=== PATIENT | male | born 1945 | race Caucasian/White ===

== ENCOUNTER → 2016-10-15 10:01 | Outpatient (CLI) | payer MEDICARE ==
[2010-02-11 08:22] VITALS: BMI 33.6
[~2016-10-15 10:01] MED LIST: BAYER CHEWABLE81 MG PO; COUMADIN5 MG PO; LISINOPRIL-HCTZ1 T13 PO; METOPROLOL TART50 MG PO; PLAVIX75 MG PO
[2016-10-27 10:00] VITALS: BMI 30.6
== END | disposition home or self-care (01) ==
LOC: D.CT 10:01
DX: I70.213 Atherosclerosis of native arteries of extremities with intermittent claudication, bilateral legs (principal)

== ENCOUNTER 2016-10-27 08:41 | Outpatient (CLI) | payer MEDICARE ==
[~2016-10-27] VITALS: Ht 190.5 cm; Wt 111.4 kg
--- NOTE | ~2016-10-27 | HEMODYNAMI ---
PATIENT:REGINO ANDERSON MEDICAL RECORD: [id number] : 43 LOCATION:D.CAT ADMISSION DATE: 10/27/16 Generatedon:10/27/201612:14 Patient name: REGINO ANDERSON Patient #: [id number] SSN: D OB: 1945 Date of study: 10/27/2016 Page: Of Hemodynamic Procedure Report Patient Data Patient Demographics Procedure consent was obtained First Name: REGINO Gender: Male Last Name: JUSTIN : 1945 Middle Initial: MARTINEZ Age: 70 year(s) Patient #: [id number] Race: Unknown Additional ID: [id number] Contact details Address: [facility] [address] State: [place] City: [facility] Zip code: [address] Past Medical History Allergies: No known allergies Admission Admission Data Admission Date: 10/27/2016 Admission Time: 8:41 Height (in.): 75 BSA: 2.39 (m2) Height (cm.): 190.5 BMI: 30.69 (kg/m2) Weight (lbs.): 245.51 Weight (kg.): 111.36 Lab Results Lab Result Date: 10/27/2016 Lab Result Time: 0:00 Biochemistry Name Units Result Min Max Creatinine mg/dl 0.8 --(-*--)-- 0.6 1.3 CBC Name Units Result Min Max Hemoglobin g/dl 17.7 --(----)*- 13.5 17.5 Procedure Procedure Types Cath Procedure Miscellaneous Procedures Moderate Sedation up to 30 minutes Peripheral Cath Diagnostic Procedure Cath Peripheral Qhsqq-Islelms-Jxq-Off Peripheral vascular Intervention Stent Stent-Tib/Per w/plasty Initial Procedure Description Procedure Date Procedure Date: 10/27/2016 Procedure Start Time: 11:47 Procedure End Time: 12:14 Procedure Staff Name Function Alex Christiansen MD Performing Physician Miquel Bowden RT Scrub Teto Tanner RN Nurse Hoa Negrete RT Monitor Procedure Data Cath Procedure Fluoroscopy Diagnostic fluoroscopy Total fluoroscopy Time: 7.4 time: 7.4 min min Diagnostic fluoroscopy Total fluoroscopy dose: 234 dose: 234 mGy mGy Contrast Material Contrast Material Type Amount (ml) Isovue 300 223 Entry Location Entry Primary Successful Side Size Upsize Upsize Entry Closure Succes sful Closure Location (Fr) 1 (Fr) 2 (Fr) Remarks Device Remarks Femoral Right 5 Fr 6 Fr 6 Fr artery Long Short Estimated blood loss: 10 ml Diagnostic catheters Device Type Used For End Catheter Placement Cordis Tempo 5Fr UF Abdominal catheter aortogram with runoff Procedure Complications No complications Procedure Medications Medication Administration Route Dosage Oxygen NC 2 l/min Heparin Flush Bag added to field 2 bags (1000units/500ml NS) 0.9% NaCl I.V. 100 ml/hr Fentanyl I.V. 50 mcg Versed I.V. 1 mg Fentanyl I.V. 50 mcg Versed I.V. 1 mg Fentanyl I.V. 50 mcg Fentanyl I.V. 50 mcg Heparin Bolus I.V. 4000 units Versed I.V. 1 mg Versed I.V. 1 mg Plavix P.O. 600 mg Hemodynamics Rest BSA: 2.39 (m2) HGB: 17.7 (g/dl) O2 Consumption: Estimated: 285.93 (ml/min) O2 Co nsumption indexed: Estimated:119.64 (ml/min/m) Heart Rate: 81 (bpm) Snapshots Pre Cath Intra NCS Post Cath Vital Signs Time Heart Resp SPO2 etCO2 DT1zhbt NIBP (mmHg) Rhythm Pain Sedatio n Rate (ipm) (%) (mmHg) (mmHg) Status Level (bpm) 11:31:00 82 20 98 0 0 134/102(114) A-Fib 0 (11) 10(A) , No pain 11:35:06 72 17 100 0 0 136/90(111) A-Fib 0 (11) 10(A) , No pain 11:39:16 83 18 95 0 0 123/78(97) A-Fib 0 (11) 10(A) , No pain 11:43:20 77 17 97 0 0 118/86(106) A-Fib 0 (11) 10(A) , No pain 11:47:24 97 18 98 0 0 135/81(96) A-Fib 0 (11) 10(A) , No pain 11:51:34 99 17 98 0 0 117/74(95) A-Fib 0 (11) 9(A) , No pain 11:55:35 96 16 97 0 0 119/83(97) A-Fib 0 (11) 9(A) , No pain 11:59:35 95 17 97 0 0 120/90(95) A-Fib 0 (11) 9(A) , No pain 12:03:37 96 16 99 0 0 127/84(122) A-Fib 0 (11) 9(A) , No pain 12:07:42 88 17 96 0 0 109/81(91) A-Fib 0 (11) 9(A) , No pain 12:11:42 85 19 94 0 0 123/80(106) A-Fib 0 (11) 9(A) , No pain Medications Time Medication Route Dose Verified Delivered Reason Notes Effectiveness by by 11:32:04 Oxygen NC 2 Teto Teto Per physician l/min Ciro Tanner RN RN 11:32:12 Heparin Flush added 2 Teto Teto used for Bag to bags Ciro Tanner RN procedure (1000units/500ml field RN NS) 11:32:23 0.9% NaCl I.V. 100 Teto Teto Per physician ml/hr Ciro Tanner RN RN 11:42:38 Fentanyl I.V. 50 Teto Teto for sedation mcg Ciro Tanner RN RN 11:42:45 Versed I.V. 1 mg Teto Teto for sedation Ciro Tanner RN RN 11:47:28 Fentanyl I.V. 50 Teto Teto for sedation mcg Ciro Tanner RN RN 11:47:33 Versed I.V. 1 mg Teto Teto for sedation Ciro Tanner RN RN 11:50:03 Fentanyl I.V. 50 Teto Teto for sedation mcg Ciro Tanner RN RN 11:55:48 Fentanyl I.V. 50 Teto Teto for sedation mcg Ciro Tanner RN RN 11:55:57 Heparin Bolus I.V. 4000 Teto Teto for units Ciro Tanner RN anticoagulation RN 12:03:09 Versed I.V. 1 mg Teto Teto for sedation Ciro Tanner RN RN 12:05:22 Versed I.V. 1 mg Etto Teto for sedation Ciro Tanner RN RN 12:13:27 Plavix P.O. 600 Teto Irene for mg Ciro Tanner RN antiplatelet RN therapy Procedure Log Time Note 11:05:41 Teto Tanner RN sent for patient. Start room use. 11:15:42 Time tracking: Regular hours 11:15:46 Plan of Care:Hemodynamics will remain stable., Cardiac rhythm will remain stable., Comfort level will be maintained., Respiratory function will remain adequate., Patient/ family verbilizes understanding of procedure., Procedure tolerated without complication., Recovers from procedure without complications.. 11:17:58 Lab Result : Hemoglobin 17.7 g/dl 11:17:58 Lab Result : Creatinine 0.8 mg/dl 11:18:12 Patient Height : 75 cm 11:18:28 Patient Weight : 245.51 kg 11:22:56 Patient received from Pre/Post Procedure Room to CCL 1 Alert and oriented. Tansferred to table in Supine position. 11:23:00 Warm blankets applied, and theresa hugger turned on for patient comfort. 11:23:00 Correct patient and procedure confirmed by team. 11:23:02 Signed procedure consent form obtained from patient. 11:23:03 ECG and BP/O2 sat monitors applied to patient. 11:23:03 Full Disclosure recording started 11:30:02 Vital chart was started 11:32:04 Oxygen 2 l/min NC was administered by Teto Tanner RN; Per physician; 11:32:12 Heparin Flush Bag (1000units/500ml NS) 2 bags added to field was administered by Teto Tanner RN; used for procedure; 11:32:14 Rhythm: sinus rhythm 11:32:20 Baseline sample Acquired. 11:32:23 0.9% NaCl 100 ml/hr I.V. was administered by Teto Tanner RN; Per physician; 11:32:38 H&P Date Dictated: 10/08/2016 Within 30 days and on chart., H&P Addendum completed by physician on day of procedure. (MUST COMPLETE FOR ALL OUTPATIENTS). 11:32:40 Pre-procedure instructions explained to patient. 11:32:41 Pre-op teaching completed and patient verbalized understanding. 11:32:42 Family in waiting room. 11:32:45 Patient NPO since Midnight. 11:32:53 Patient allergic to No known allergies 11:32:55 Is the patient allergic to Iodine/contrast media? No. 11:32:58 Is patient on blood thinner?Yes 11:33:07 ACC The patient was administered the following blood thiners within the last 24 hours: None 11:33:10 Patient diabetic? No. 11:33:14 Previous problem with sedation/anesthesia? No ? 11:33:15 Snore? Yes 11:33:16 Sleep apnea? Yes 11:33:17 Deviated septum? No 11:33:18 Opens mouth fully? Yes 11:33:19 Sticks out tongue? Yes 11:33:20 Airway obstruction? No ? 11:33:22 Dentures? No ? 11:33:28 Pre procedure: right dorsailis pedis pulse Doppler 11:33:32 Pre procedure: left dorsailis pedis pulse Doppler 11:33:35 Patient pain scale 0/10 ?. 11:37:41 IV patent on arrival in left hand with 0.9% NaCl at [facility]. 11:37:47 Lab results completed and on chart. 11:37:51 Bilateral groins area was prepped with chlora-prep and draped in sterile fashion 11:37:52 Alarms reviewed by R. N. 11:37:52 Sharps counted by scrub and verified by R.N. 11:38:02 Acist Syringe opened to sterile field. 11:38:02 Bag Decanter opened to sterile field. 11:38:03 Medline Cath Pack opened to sterile field. 11:38:03 Terumo 5Fr Reno Sheath opened to sterile field. 11:38:04 St Mario 260cm J .035 wire opened to sterile field. 11:38:05 Acist Hand Control opened to sterile field. 11:38:06 Acist Manifold opened to sterile field. 11:38:07 Tegaderm 4 x 4 opened to sterile field. 11:40:51 Final Timeout: patient, procedure, and site verified with staff and physician. All members of the team are in agreement. 11:41:21 Right groin site verified by team. 11:41:25 Physical assessment completed. ASA score P 2 - A patient with mild systemic disease as per Alex Christiansen MD. 11:41:30 Sedation plan: IV Moderate Sedation Versed, Fentanyl 11:42:23 Zero performed for pressure channel P1 11:42:27 Zero performed for pressure channel P1 11:42:31 Zero performed for pressure channel P1 11:42:38 Fentanyl 50 mcg I.V. was administered by Teto Tanner RN; for sedation; 11:42:45 Versed 1 mg I.V. was administered by Teto Tanner RN; for sedation; 11:47:04 Procedure started. 11:47:10 Local anesthetic to right femoral artery with Lidocaine 2% by Alex Christiansen MD.INITIAL ACCESS ONLY 11:47:27 A 5 Fr sheath was inserted into the Right Femoral artery 11:47:28 Fentanyl 50 mcg I.V. was administered by Teto Tanner RN; for sedation; 11:47:33 Versed 1 mg I.V. was administered by Teto Tanner RN; for sedation; 11:47:38 A Credit Sesame 5Fr UF catheter was advanced over the wire and used for Abdominal aortogram with runoff. 11:49:29 Terumo ANGLED SS 260CM glide wire opened to sterile field. 11:49:38 Terumo TORQUE DEVICE PLASTIC .038 opened to sterile field. 11:50:03 Fentanyl 50 mcg I.V. was administered by Teto Tanner RN; for sedation; 11:50:17 SS Bingham wire advanced. 11:50:29 UF Cath advanced to Lt Iliac 11:51:40 Catheter removed. 11:53:02 Sheath upsized to a 6 Fr Long. 11:54:44 [place]kridge Sci Choice PT Extra Support J 300cm .014 gu opened to sterile field. 11:55:48 Fentanyl 50 mcg I.V. was administered by Teto Tanner RN; for sedation; 11:55:57 Heparin Bolus 4000 units I.V. was administered by Teto Tanner RN; for anticoagulation; 11:58:01 Wire removed. 11:58:09 Choice PT ES wire advanced. 12:01:44 Inflation number: 1 A [place]ridge Sci Parmer 3.0 X 20 balloon was prepped and advanced across the Proximal Posterior Tibial, Left, then inflated to 13 RUSTY for 0:28 (min:sec). 12:02:01 Inflation number: 2 The [place] Sci Parmer 3.0 X 20 balloon was reinflated across the Proximal Posterior Tibial, Left, to 10 RUSTY for 0:09 (min:sec). 12:02:49 Inflation number: 3 The [place] Sci Parmer 3.0 X 20 balloon was reinflated across the Proximal Posterior Tibial, Left, to 7 RUSTY for 0:07 (min:sec). 12:03:09 Versed 1 mg I.V. was administered by Teto Tanner RN; for sedation; 12:03:13 Inflation number: 4 The [place] Sci Parmer 3.0 X 20 balloon was reinflated across the Proximal Posterior Tibial, Left, to 13 RUSTY for 0:23 (min:sec). 12:03:29 Inflation number: 5 The [place] Sci Parmer 3.0 X 20 balloon was reinflated across the Proximal Posterior Tibial, Left, to 13 RUSTY for 0:10 (min:sec). 12:04:20 Balloon removed over the wire. 12:05:22 Versed 1 mg I.V. was administered by Teto Tanner RN; for sedation; 12:06:25 Inflation Number: 6 A Medtronic Integrity 3.0 X 30 stent was prepped and advanced across the Proximal Posterior Tibial, Left. The stent was deployed at 13 RUSTY for 0:11 (min:sec). 12:06:44 Stent catheter was removed intact over wire. 12:06:46 Wire removed. 12:07:01 Cordis 6Fr Exoseal opened to sterile field. 12:07:07 Sheath upsized to a 6 Fr Short. 12:07:10 Procedure ended.(Physican Out) 12:07:23 Fluoroscopy time 07.40 minutes. 12:07:27 Fluoroscopy dose: 234 mGy 12:07:27 Flurop Dose total: 234 12:08:53 Contrast amount:Isovue 300 223ml. 12:08:54 Sharps counted by scrub and verified by R.N. 12:08:55 Insertion/operative site no bleeding no hematoma. 12:08:58 Post-op/insertion site Right Femoral artery dressed using a 4 x 4 and Tegaderm. 12:09:02 Post right femoral artery:stable, clean and dry 12:09:08 Post Procedure Pulses reassessed and unchanged 12:09:11 Post-procedure physical assessment completed. ASA score P 2 - A patient with mild systemic disease as per Alex Christiansen MD. 12:09:14 Post procedure rhythm: unchanged. 12:09:16 Estimated blood loss: 10 ml 12:09:18 Post procedure instruction explained to patient.Patient verbalizes understanding. 12:09:19 Patient needs reinforcement of post procedure teaching. 12:09:44 Procedure type changed to Cath procedure, Miscellaneous Procedures, Moderate Sedation up to 30 minutes, Peripheral Cath Diagnostic Procedure, Cath Peripheral, Cohhv-Ooaauyn-Sbr-Off, Peripheral vascular Intervention, Stent, Stent-Tib/Per w/plasty Initial 12:10:05 Procedure Complication : No complications 12:10:08 See physician's report for complete and final results. 12:10:51 Merit BasixCompak Inflation Kit opened to sterile field. 12:11:16 Terumo 6Fr Reno Sheath opened to sterile field. 12:11:17 Terumo 6Fr Reno Destination Sheath opened to sterile field. 12:12:22 Procedure and supply charges have been captured, reviewed, submitted and are correct. 12:13:27 Plavix 600 mg P.O. was administered by Teto Tanner RN; for antiplatelet therapy; 12:14:09 Vital chart was stopped 12:14:11 Report given to Pre/Post Procedure Room. 12:14:14 Patient transfered to Pre/Post Procedure Room with Bed. 12:14:24 Procedure ended. 12:14:24 Full Disclosure recording stopped 12:14:27 End room use (Document Last) Intervention Summary Intervention Notes Time ActionType Lesion and Equipment Action# Pressure Duration Attributes Used 12:01:44 Inflate Proximal [place] 1 13 00:28 balloon Posterior Sci Tibial, Parmer Left 3.0 X 20 balloon 12:02:01 Reinflate Proximal [place] 2 10 00:09 balloon Posterior Sci Tibial, Parmer Left 3.0 X 20 balloon 12:02:49 Reinflate Proximal [place] 3 7 00:07 balloon Posterior Sci Tibial, Parmer Left 3.0 X 20 balloon 12:03:13 Reinflate Proximal [place] 4 13 00:23 balloon Posterior Sci Tibial, Parmer Left 3.0 X 20 balloon 12:03:29 Reinflate Proximal [place] 5 13 00:10 balloon Posterior Sci Tibial, Parmer Left 3.0 X 20 balloon 12:06:25 [address] stent Proximal Medtronic 6 13 00:11 Posterior Integrity Tibial, 3.0 X 30 Left stent Device Usage Item Name Manufacture Quantity Catalog Number Hospital Part Current Mini mal Lot# / Charge Number Stock Stock Serial# Code [facility] 1 [id number] [id number] [id number] 20 Syringe Medical Systems Inc Bag Microtek 1 2002S 524155 41010 492853 5 Decanter Medical Inc. Medline Cardinal 1 [id number] 127142 58300 662668 5 Cath Pack Health Terumo 5Fr Terumo 1 [id number] 151608 234944 928049 [address] St Mario 1 160308 479161 542896 113168 30 260cm J .035 wire Acist Hand Acist 1 93455 025999 040319 360933 5 Control Medical Systems Inc Acist Acist 1 12104 421766 843659 148567 5 Manifold Medical Systems Inc Tegaderm 4 3M 1 1626W 148854 714228 389688 5 x 4 Cordis Cardinal 1 [id number] 208577 525053 752589 10 Tempo 5Fr Health UF catheter Terumo Terumo 1 [id number] 249480 259490 967432 [address] SS 260CM glide wire Terumo [place] 1 TD01 374197 064372 124685 5 TORQUE Scientific DEVICE PLASTIC .038 Elkridge Sci Elkridge 1 [id number] 625917 248245 696084 5 Choice PT Scientific Extra Support J 300cm .014 gu Elkridge Sci Elkridge 1 [id number] 514327 473974 002699 1 [id number] Parmer Scientific 3.0 X 20 balloon Medtronic Medtronic 1 [id number] 905176 820943 132034 4 [id number] Integrity 3.0 X 30 stent Cordis 6Fr Cardinal 1 EX600 805189 007451 085691 10 [facility] Merit 1 [id number] 527042 427791 849155 15 BasixCompak Medical Inflation Kit Terumo 6Fr Terumo 1 EHE420 540453 580269 465037 40 Reno Sheath Terumo 6Fr Terumo 1 RSR01 892503 79802 462116 5 Reno Destination Sheath Signature Audit Exchange Stage Time Signature Unsigned Intra-Procedure 10/27/2016 Hoa 12:14:41 PM Counts RT(R) Signatures Monitor : Hoa Signature : Counts RT Date : Time : [address] [place] [address]
--- NOTE | ~2016-10-27 | OP ---
PATIENT NAME: REGINO ANDERSON MEDICAL RECORD: [id number] :43 LOCATION:D.CAT ADMISSION DATE: SURGEON: SARA MILLER MD DATE OF OPERATION: 10/27/2016 PROCEDURES: 1. Stent placement, posterior tibial, left. 2. [employer], posterior tibial, left. 3. Aortofemoral runoff. 4. Abdominal aortography. INDICATIONS: Claudication and peripheral vascular disease. PROCEDURE IN DETAIL: After informed consent was obtained and after detailed explanation of risks, benefits as well as alternative therapies, the patient elected to proceed with angiogram and angioplasty. The right femoral area was prepped and draped in normal sterile fashion. The right femoral artery was cannulated via modified Seldinger technique with placement of 6-Estonian zbzbtm-muj-tdmb sheath. All catheters exchanged through this sheath. FINDINGS: The abdominal aortography was performed. The catheter was pulled down for aortofemoral runoff. Abdominal aortography reveals significant renal artery stenosis on the right greater than 80%, no renal artery stenosis on the left. No evidence of aneurysmal dilatation or dissection. No abdominal aortic stenosis. RIGHT LEG: A. Iliac: The common internal and external iliacs have mild irregularities, but no flow-limiting stenosis. B. Femoral system: The common superficial and deep femoral have moderate irregularities, but no flow-limiting stenosis. C. Popliteal and infrapopliteal vessels: The popliteal is widely patent. The anterior tibial is totally occluded. There is 2-vessel runoff through the posterior tibial and peroneal, although diffusely diseased there is 2-vessel runoff. LEFT LEG: A. Iliac: The common internal and external iliacs have moderate irregularities, but no flow-limiting stenosis. B. Femoral system: The common superficial and deep femoral have moderate irregularities, but no flow-limiting stenosis. C. Popliteal and infrapopliteal vessels: The popliteal is widely patent. The anterior tibial appears to be totally occluded in the proximal vessel. There is 2-vessel runoff through the peroneal and posterior tibial. The posterior tibial is by far the larger vessel. There is 80%-90% stenosis in the proximal posterior tibial. [employer] OF THE POSTERIOR TIBIAL: With a 3.0 balloon, this yielded a suboptimal result with severe intimal dissection. Stenting was undertaken with a 3.0 x 30 Integrity stent. Result was 0% residual with adventism of brisk distal flow. IMPRESSION: Successful percutaneous transluminal angioplasty stent of the left posterior tibial going from 90% initial stenosis to 0% residual with adventism of brisk distal flow. OPERATIVE REPORT [id number] REGINO ANDERSON TRANSINT:[id number] Voice Confirmation ID: [id number] DOCUMENT ID: [id number] SARA MILLER MD CC: [id number] DICTATION DATE: 10/27/16 1213 COFFEE TASTER: 10/27/16 1234 [facility] [address] [id number]
[2016-10-27] MEDS ORDERED: BAYER CHEWABLE81 MG PO (09:57)
[2016-10-27] MEDS ORDERED: LISINOPRIL-HCTZ1 T13 PO (09:57)
[2016-10-27] MEDS ORDERED: COUMADIN5 MG PO (09:57)
[2016-10-27] MEDS ORDERED: METOPROLOL TART50 MG PO (09:58)
[2016-10-27 10:00] VITALS: BP 137/80; Ht 190.5 cm; Wt 111.4 kg
[2016-10-27 10:31] LABS: HEMATOCRIT 50.2 % (42.0-54.0); HEMOGLOBIN 17.7 g/dL (13.5-17.5); LYMPHOCYTES 21.5 % (15-50); MCH 34.1 pg (26.0-34.0); MCHC 35.3 g/dL (31.0-37.0); MCV 96.7 fL (80.0-100.0); MEAN PLATELET VOLUME 10.1 fL (7.4-10.4); NEUTROPHILS 66.3 % (40-80); PLATELET COUNT 139 10x3/uL (130-400); RBC 5.19 10x6/uL (4.20-6.10); RDW 12.9 % (11.5-14.5); WBC 8.2 10x3/uL (4.8-10.8)
[2016-10-27 10:36] LABS: INR 1.09 (0.85-1.17); PROTIME 13.9 SECONDS (11.6-15.0)
[2016-10-27 10:45] LABS: CALC OSMOLALITY 282 mosm/kg (275-300); CALCIUM 9.4 mg/dL (8.5-10.1); CARBON DIOXIDE 27.8 mmol/L (21.0-32.0); CHLORIDE - SERUM 104 mmol/L (98-107); CREATININE - SERUM 0.8 mg/dL (0.6-1.3); GLUCOSE 117 mg/dL (74-106); POTASSIUM - SERUM 4.7 mmol/L (3.5-5.1); SODIUM 141 mmol/L (136-145); UREA NITROGEN 14 mg/dL (7-18); eGFR NON AFRICAN AMERICAN > 90 mL/min (90-120)
--- NOTE | 2016-10-27 12:32 | NUR ---
1230 RECEIVED PT FROM FUNCTIONAL DIRECTOR. RR EVEN AND UNLABORED, VSS. DRESSING TO RIGHT GROIN IS CDI, NO BLEEDING OR HEMATOMA NOTED. PEDAL PULSES PALPABLE. PT DENIES ANY C/O OR NEEDS AT THIS TIME. AT BEDSIDE. CALL LIGHT IN REACH.
[2016-10-27] MEDS ORDERED: PLAVIX75 MG PO (12:53)
--- NOTE | 2016-10-27 13:01 | NUR ---
1245 RIGHT GROIN DRESSING IS CDI, NO BLEEDING OR HEMATOMA NOTED. PEDAL PULSES PALPABLE. PT DENIES ANY C/O AT THIS TIME. VSS. AT BEDSIDE.
--- NOTE | 2016-10-27 17:40 | NUR ---
1600-SAT UP TO EAT TURKEY SANDWICH, RIGHT GROIN CDI, NO HEMATOMA, AT SIDE. 1630-IV D'C WITH CATH TIP INTACT, WRITTEN AND VERBAL INSTRUCTIONS GIVEN TO PT AND . QUESTIONS ANSWERED. RIGHT GROIN WITHOUT CHANGES. 1700-D'C TO PRIVATE CAR. NO DISTRESS NOTED
== END 2016-10-27 17:00 | disposition home or self-care (01) ==
LOC: D.CATH 08:41
PROVIDERS: Internal Medicine Interventional Cardiology
DX: I70.213 Atherosclerosis of native arteries of extremities with intermittent claudication, bilateral legs (principal)

== ENCOUNTER 2016-11-18 09:32 | Inpatient (IN) | payer MEDICARE ==
[2016-11-18] VITALS (9 sets, daily range): BP systolic 120–155; BP diastolic 72–94; BMI 29.9
[~2016-11-18] VITALS: Ht 190.5 cm; Wt 109.1 kg
[2016-11-18 10:17] LABS: BASOPHILS 0.2 % (0-2); EOSINOPHILS 0.1 % (0-7); HEMATOCRIT 28.2 % (42.0-54.0); HEMOGLOBIN 9.8 g/dL (13.5-17.5); IMMATURE GRANULOCYTES 0.8 % (0-5); LYMPHOCYTES 15.2 % (15-50); MCH 34.8 pg (26.0-34.0); MCHC 34.8 g/dL (31.0-37.0); MEAN PLATELET VOLUME 10.6 fL (7.4-10.4); MONOCYTES 8.9 % (2-11); NEUTROPHILS 74.8 % (40-80); RBC 2.82 10x6/uL (4.20-6.10); RDW 12.8 % (11.5-14.5); WBC 10.9 10x3/uL (4.8-10.8)
[2016-11-18 10:19] LABS: PLATELET COUNT 168 10x3/uL (130-400)
[2016-11-18 10:28] LABS: APTT 28.4 SECONDS (22.8-39.4); INR 1.93 (0.85-1.17); PROTIME 22.1 SECONDS (11.6-15.0)
[2016-11-18 10:38] LABS: ALBUMIN 2.9 g/dL (3.4-5.0); ALKALINE PHOSPHATASE 40 U/L (46-116); ALT (SGPT) 20 U/L (10-68); BILIRUBIN - TOTAL 0.44 mg/dL (0.2-1.3); CALC OSMOLALITY 303 mosm/kg (275-300); CALCIUM 8.5 mg/dL (8.5-10.1); CARBON DIOXIDE 25.5 mmol/L (21.0-32.0); CHLORIDE - SERUM 108 mmol/L (98-107); CREATININE - SERUM 0.9 mg/dL (0.6-1.3); POTASSIUM - SERUM 3.5 mmol/L (3.5-5.1); PROTEIN - SERUM 5.8 g/dL (6.4-8.2); SODIUM 143 mmol/L (136-145); UREA NITROGEN 55 mg/dL (7-18); eGFR NON AFRICAN AMERICAN 88 mL/min (90-120)
[2016-11-18 10:39] LABS: GLUCOSE 171 mg/dL (74-106)
--- NOTE | 2016-11-18 15:50 | NUR ---
PATIENT ARRIVED TO THE FLOOR VIA CART FROM ER. HE IS AWAKE AND ALERT. ADMISSION TO BE COMPLETED.
--- NOTE | 2016-11-18 16:05 | NUR ---
SPOKE WITH CIRCULATING NURSE FOR DR MILLER (WHO WAS SCRUBBED IN ON A CASE) AND HE GAVE HIS OK FOR THE PATIENT TO GO TO GI LAB.
[2016-11-18 16:11] LABS: HEMATOCRIT 30.5 % (42.0-54.0); HEMOGLOBIN 10.3 g/dL (13.5-17.5)
--- NOTE | 2016-11-18 17:17 | NUR ---
EGD IN PROGRESS AT BEDSIDE.
--- NOTE | 2016-11-18 17:23 | NUR ---
EGD COMPLETED. PER DR OROSCO THERE WAS A BLEEDING VESSEL THAT TAKEN CARE OF. PICTURES IN THE CHART. HAS NOT RETURNED YET.
--- NOTE | 2016-11-18 17:34 | NUR ---
2 TIMES EPINEPHRINE GIVEN FOR BLEEDING CONTROL TOTAL 1CC. ALSO CAUTERIZED WITH GOLD PROBE.
--- NOTE | 2016-11-18 19:30 | NUR ---
ASSESSMENT COMPLETE. S1S2. UNCONTROLLED AFIB; TACHYCARDIA WITH OCCASIONAL PVC SHOWING ON MONITOR. DYSPNEA ON EXERTION. SKIN PALE. SHALLOW RR; 98% O2 SAT. AAO. 2L VIA NC. RADIAL PULSES +2. PEDAL PULSES PALP BUT FAINT; CHECKED WITH DOPPLER TO CONFIRM.
--- NOTE | 2016-11-18 23:15 | NUR ---
REASSESSMENT COMPLETE. NO CHANGES FROM PREVIOUS ASSESSMENT. ON HOME BIPAP UNIT. O2 SAT 97%.
[2016-11-19] VITALS (24 sets, daily range): BP systolic 108–165; BP diastolic 68–98; Ht 190.5 cm; Wt 109.1 kg
[2016-11-19 00:53] LABS: HEMATOCRIT 29.5 % (42.0-54.0); HEMOGLOBIN 10.1 g/dL (13.5-17.5)
--- NOTE | 2016-11-19 03:00 | NUR ---
REASSESSMENT COMPLETE. NO CHANGES FROM PREVIOUS ASSESSMENT. VSS. NO DISTRESS NOTED. CALL LIGHT IN REACH. WILL CONTINUE TO MONITOR.
[2016-11-19 05:11] LABS: BASOPHILS 0.2 % (0-2); EOSINOPHILS 0.5 % (0-7); HEMATOCRIT 28.5 % (42.0-54.0); HEMOGLOBIN 9.7 g/dL (13.5-17.5); IMMATURE GRANULOCYTES 0.4 % (0-5); LYMPHOCYTES 24.2 % (15-50); MEAN PLATELET VOLUME 10.5 fL (7.4-10.4); MONOCYTES 10.7 % (2-11); RBC 2.94 10x6/uL (4.20-6.10); RDW 15.3 % (11.5-14.5); WBC 9.3 10x3/uL (4.8-10.8)
[2016-11-19 05:24] LABS: MCV 96.9 fL (80.0-100.0); PLATELET COUNT 127 10x3/uL (130-400)
[2016-11-19 05:27] LABS: ALBUMIN 2.7 g/dL (3.4-5.0); ALKALINE PHOSPHATASE 35 U/L (46-116); ALT (SGPT) 19 U/L (10-68); BILIRUBIN - TOTAL 0.67 mg/dL (0.2-1.3); CALC OSMOLALITY 299 mosm/kg (275-300); CALCIUM 7.7 mg/dL (8.5-10.1); CARBON DIOXIDE 26.2 mmol/L (21.0-32.0); CHLORIDE - SERUM 111 mmol/L (98-107); CREATININE - SERUM 0.8 mg/dL (0.6-1.3); GLUCOSE 129 mg/dL (74-106); INR 1.61 (0.85-1.17); POTASSIUM - SERUM 3.3 mmol/L (3.5-5.1); PROTEIN - SERUM 5.4 g/dL (6.4-8.2); PROTIME 19.1 SECONDS (11.6-15.0); SODIUM 145 mmol/L (136-145); eGFR NON AFRICAN AMERICAN > 90 mL/min (90-120)
[2016-11-19 05:28] LABS: UREA NITROGEN 38 mg/dL (7-18)
--- NOTE | 2016-11-19 07:00 | NUR ---
REPORT RECEIVED. ASSESSMENT COMPLETED. PATIENT DENIES NEEDS AT THIS TIME.
--- NOTE | 2016-11-19 09:41 | NUR ---
PATIENT HAD NO VISITORS THIS VISITATION.
[2016-11-19 15:40] LABS: HEMATOCRIT 29.5 % (42.0-54.0); HEMOGLOBIN 9.8 g/dL (13.5-17.5)
--- NOTE | 2016-11-19 18:45 | NUR ---
PT C/O SLIGHT HEADACHE AND IS REQUESTING SOME TYLENOL. CALL PLACED TO DR PONCE ([employer] EXAMINER FOR DR ELLISON), THROUGHT THE ANSWERING SERVICE. WILL WAIT FOR RETURN CALL.
--- NOTE | 2016-11-19 19:30 | NUR ---
ASSESSMENT COMPLETE. S1S2; IRREGULAR. AAO. RR CLEAR EQUAL BILATERALLY; DYSPNEA ON EXERTION. PT SKIN PALE. MAKES CHANGES IN POSITION INDEPENDENTLY. 2L VIA NC. PERRLA. ASSEMBLER RUBBER FOOTWEAR STRENGTH EQUAL +4.
--- NOTE | 2016-11-19 23:00 | NUR ---
REASSESSMENT COMPLETE. NO CHANGES FROM PREVIOUS ASSESSMENT. VSS. NO DISTRESS NOTED. CALL LIGHT IN REACH. WILL CONTINUE TO MONITOR.
[2016-11-19 23:17] LABS: HEMATOCRIT 25.2 % (42.0-54.0); HEMOGLOBIN 8.8 g/dL (13.5-17.5)
--- NOTE | 2016-11-19 23:50 | NUR ---
PT ASSISTED TO BEDSIDE COMMODE. FLATULANCE NOTED. NO BM. UOP.
[2016-11-20] VITALS (11 sets, daily range): BP systolic 118–141; BP diastolic 68–96
--- NOTE | 2016-11-20 03:05 | NUR ---
REASSESSMENT COMPLETE. NO CHANGES FROM PREVIOUS ASSESSMENT. VSS. NO DISTRESS NOTED. WILL CONTINUE TO MONITOR. CALL LIGHT IN REACH.
[2016-11-20 03:57] LABS: BASOPHILS 0.1 % (0-2); EOSINOPHILS 1.5 % (0-7); HEMATOCRIT 25.9 % (42.0-54.0); HEMOGLOBIN 8.7 g/dL (13.5-17.5); IMMATURE GRANULOCYTES 0.4 % (0-5); LYMPHOCYTES 21.4 % (15-50); MCH 33.5 pg (26.0-34.0); MCHC 33.6 g/dL (31.0-37.0); MEAN PLATELET VOLUME 10.5 fL (7.4-10.4); MONOCYTES 13.1 % (2-11); NEUTROPHILS 63.5 % (40-80); PLATELET COUNT 120 10x3/uL (130-400); RDW 15.8 % (11.5-14.5); WBC 8.1 10x3/uL (4.8-10.8)
[2016-11-20 03:58] LABS: MCV 99.6 fL (80.0-100.0)
[2016-11-20 04:07] LABS: INR 1.44 (0.85-1.17); PROTIME 17.4 SECONDS (11.6-15.0)
[2016-11-20 04:12] LABS: ALBUMIN 2.7 g/dL (3.4-5.0); ALKALINE PHOSPHATASE 39 U/L (46-116); ALT (SGPT) 20 U/L (10-68); CALC OSMOLALITY 286 mosm/kg (275-300); CALCIUM 7.9 mg/dL (8.5-10.1); CHLORIDE - SERUM 109 mmol/L (98-107); CREATININE - SERUM 0.8 mg/dL (0.6-1.3); GLUCOSE 119 mg/dL (74-106); POTASSIUM - SERUM 3.5 mmol/L (3.5-5.1); PROTEIN - SERUM 5.5 g/dL (6.4-8.2); SODIUM 141 mmol/L (136-145); UREA NITROGEN 27 mg/dL (7-18); eGFR NON AFRICAN AMERICAN > 90 mL/min (90-120)
--- NOTE | 2016-11-20 07:00 | NUR ---
PT AAOX4 WITH NO DEFICITS NOTED. STATES HE FEELS BETTER TODAY AND IS EXPERIENCING NO PAIN. AFIB NOTED ON MONITOR AND PER AFTERSCHOOL BABYSITTER PHYSICIANS ARE AWARE, PT BEING TREATED WITH LOPRESSOR TO CONTROL RATE. IRREGULAR HEART SOUNDS NOTED. PT SITTING UP IN BED AND ABLE TO PERFORM ACTIVE ROM INDEPENDENTLY. O2 SAT STABLE ON ROOM AIR. WILL CONTINUE TO MONITOR
--- NOTE | 2016-11-20 09:00 | NUR ---
PT COMPLAINS OF CONSTIPATION SINCE WEDNESDAY. DR OROSCO NOTIFIED AND ONE TIME DOSE OF MIRALAX ORDERED. FROM GI STANDPOINT PT IS STABLE TO TRANSFER TO FLOOR, WILL CONSULT PRIMARY BEFORE TRANSFER. WILL CONTINUE TO MONITOR
--- NOTE | 2016-11-20 09:53 | NUR ---
Nutrition follow-up: Diet still clear liquids for another 24 hours then to advance as tolerated Labs reviewed RDN following.
[2016-11-20 14:06] LABS: HEMATOCRIT 26.1 % (42.0-54.0); HEMOGLOBIN 8.7 g/dL (13.5-17.5)
--- NOTE | 2016-11-20 16:36 | CN ---
PATIENT NAME:REGINO ANDERSON MEDICAL RECORD: [id number] : 43 LOCATION:[facility].2303 ADMIT DATE: 11/18/16 ACCOUNT: [id number] CONSULTING PHYSICIAN: SARA MILLER MD REFERRING PHYSICIAN: KARYN ELLISON MD DATE OF CONSULTATION: 11/18/2016 Cardiology Consultation DIAGNOSES: 1. Gastrointestinal bleed, acute. 2. Atrial fibrillation. 3. Coumadin anticoagulation for atrial fibrillation. 4. Peripheral vascular disease. 5. 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 6. Coronary artery disease. 7. Hypertension. HISTORY OF PRESENT ILLNESS: Mr. Anderson comes with black tarry stools. He is on Coumadin, which is chronic for atrial fibrillation. The atrial fibrillation is chronic as well. He recently, on 10/27/2016, had PTCA stent of the left lower extremity for severe peripheral vascular disease, more or less a limb salvage type of intervention. He was then placed on aspirin and Plavix. He is now with a GI bleed. His atrial fibrillation is tachy; however, he is hypotensive, hypovolemic and anemic from the GI bleed. This is a normal physiological response. PHYSICAL EXAMINATION: GENERAL APPEARANCE: Well-nourished, well-developed, appears stated age. Level of distress, comfortable. PSYCHIATRIC: Mental status, alert, normal affect. Orientation, oriented to time, place and person. EYES: Lids and conjunctiva, noninjected. No discharge, no pallor. ENT: Lips, teeth, gums, normal dentition. Oropharynx, no cyanosis, no pallor. NECK: Carotid arteries, bilateral normal upstroke, no bruits, no thrills. JUGULAR VEINS: No jugular venous pressure or distention. CERVICAL LYMPH NODES: Nontender, nonenlarged. THYROID: Not enlarged. Nontender. No nodules. LUNGS: Respiratory effort, unlabored. CHEST: Normal curvature. No thoracic deformity. No chest wall tenderness. Percussion, resonant. Auscultation, clear. No wheezes, no rales, no rhonchi. CARDIOVASCULAR: Heart is irregularly irregular, tachycardic with atrial fibrillation. EXTREMITIES: No cyanosis, no edema. Peripheral pulses, full and equal in all extremities, except as noted. No bruits appreciated. ABDOMEN: Soft, nondistended. Normal aorta. No bruit. Nontender. No masses. Liver, nontender, no hepatomegaly. Spleen, nontender, no splenomegaly. MUSCULOSKELETAL: No joint tenderness. No joint swelling. No erythema. NEUROLOGICAL: Normal gait, normal strength, normal tone. SKIN: Warm and dry. OVERALL IMPRESSION: 1. Atrial fibrillation. At this time, we would not slow him down as the tachycardic response is physiologic from the hypovolemia and anemia. After he CONSULT REPORT [id number] JUSTIN,REGINO HENRIQUEZ gets blood, most likely this will correct itself. He is on Lopressor 50 mg b.i.d. for this. We would not make any changes in this. 2. Coumadin anticoagulation. At this time, we will hold Coumadin anticoagulation, restarting it only when stable from a GI standpoint. 3. Aspirin and Plavix anticoagulation being 3 weeks out of leg stenting. We would discontinue the aspirin and Plavix and leave them off, not restarting them at this time. He is stable from the standpoint of peripheral vascular disease. TRANSINT:[id number] Voice Confirmation ID: [id number] DOCUMENT ID: [id number] SARA MILLER MD at 1636 CC: [id number] DICTATION DATE: 11/18/16 1144 METAL FABRICATING SUPERVISOR: 11/18/161940 ADM IN [place] [id number] [place] [id number]
--- NOTE | 2016-11-20 17:15 | NUR ---
PT TRANSFER TO [facility] VIA WHEELCHAIR WITH BELONGINGS. REPORT CALLED TO ANDRES CACERES RN. PT REMIANS STABLE DURING TRANSFER.
--- NOTE | 2016-11-20 17:17 | NUR ---
PT TO ROOM VIA WHEELCHAIR TELE APPLIED RUNNING UNCON AFIB 108 BPM. PT SITTING UP ON SIDE OF BED EATING DINNER TRAY. GIVEN PT HAT TO OBTAIN STOOL SAMPLE WITH, PT IS AWARE TO CALL ONCE OBTAINED. PT IS ALERT AND ORIENTED AND DENIES OTHER NEEDS AT THIS TIME WILL CONT TO MONITOR.
--- NOTE | 2016-11-20 18:30 | NUR ---
PT SITTING UP IN BED GETTING CPAP DEMAND PLANNING MANAGER FOR BED TIME. PT HAD BM AND WAS COLLECTED AND SENT TO THE LAB FOR ANALYSIS PER ORDER. PT DENIES ANY NEEDS AT THIS TIME.
--- NOTE | 2016-11-20 19:32 | NUR ---
PT RECEIVED RESTING IN BED WITH EYES CLOSED. AROUSES TO VERBAL STIMULI. PT CURRENTLY WEARING CPAP MACHINE. ASSESSMENT COMPLETED PER FLOWSHEET. PT DENIES PAIN AT THIS TIME. TELEMETRY IN PLACE. IV TO LEFT AND RIGHT ARM NOTED TO BE SALINE LOCKED. PT STATES, "I FEEL FINE." BED IN LOW POSITION. SIDE RAILS UP X2. CALL LIGHT AND H2O IN PT REACH.
--- NOTE | 2016-11-21 00:15 | NUR ---
PT RESTING IN BED QUIETLY. NO S/S OF DISTRESS. CPAP ON. BED IN LOW POSITION. SIDE RAILS UPX2. CALL LIGHT AND H2O IN PT REACH.
[2016-11-21 06:52] LABS: INR 1.3 (0.85-1.17); PROTIME 16.1 SECONDS (11.6-15.0)
[2016-11-21 06:58] LABS: ALBUMIN 2.5 g/dL (3.4-5.0); ALKALINE PHOSPHATASE 41 U/L (46-116); ALT (SGPT) 21 U/L (10-68); BILIRUBIN - TOTAL 0.64 mg/dL (0.2-1.3); CALC OSMOLALITY 279 mosm/kg (275-300); CALCIUM 7.6 mg/dL (8.5-10.1); CARBON DIOXIDE 25.8 mmol/L (21.0-32.0); CHLORIDE - SERUM 110 mmol/L (98-107); CREATININE - SERUM 0.8 mg/dL (0.6-1.3); GLUCOSE 102 mg/dL (74-106); POTASSIUM - SERUM 3.5 mmol/L (3.5-5.1); PROTEIN - SERUM 5.1 g/dL (6.4-8.2); SODIUM 140 mmol/L (136-145); eGFR NON AFRICAN AMERICAN > 90 mL/min (90-120)
[2016-11-21 06:59] LABS: UREA NITROGEN 16 mg/dL (7-18)
--- NOTE | 2016-11-21 07:08 | NUR ---
AM ROUNDS DONE AT THIS TIME. PT IN BED SLEEPING. CALL LIGHT IN REACH, NAD NOTED, WILL CONTINUE TO MONITOR.
[2016-11-21 07:43] LABS: BASOPHILS 0.2 % (0-2); EOSINOPHILS 1.4 % (0-7); HEMATOCRIT 25.8 % (42.0-54.0); HEMOGLOBIN 8.7 g/dL (13.5-17.5); IMMATURE GRANULOCYTES 0.3 % (0-5); LYMPHOCYTES 20.7 % (15-50); MCH 33.6 pg (26.0-34.0); MCHC 33.7 g/dL (31.0-37.0); MCV 99.6 fL (80.0-100.0); MEAN PLATELET VOLUME 10.4 fL (7.4-10.4); NEUTROPHILS 65.4 % (40-80); PLATELET COUNT 118 10x3/uL (130-400); RBC 2.59 10x6/uL (4.20-6.10); RDW 15.8 % (11.5-14.5); WBC 6.3 10x3/uL (4.8-10.8)
--- NOTE | 2016-11-21 09:18 | NUR ---
ADMINISTERED MORNING MEDICATIONS, PT IN BED, DENIES ANY NEEDS AT THIS TIME. CALL LIGHT IN REACH, NAD NOTED, WILL CONTINUE TO MONITOR.
[2016-11-21 16:00] VITALS: BP 120/62
--- NOTE | 2016-11-21 18:27 | NUR ---
WENT TO GIVE PROTONIX IV, LEFT FOREARM IV, LEAKS WHEN FLUSHED, D/C IV TIP INTACT. ADMINISTERED PROTONIX TO RT FOREARM IV. PT DENIES ANY NEEDS AT THIS TIME. CALL LIGHT IN REACH, NAD NOTED, WILL CONTINUE TO MONITOR.
[2016-11-21 19:00] VITALS: BP 116/64
--- NOTE | 2016-11-21 23:47 | NUR ---
ADMIN SCHED MEDS. HELD METOPROLOL FOR B/P 166/. DENIES ANY NEEDS OR DISCOMFORTS.
[2016-11-22] VITALS: BP 128/66
--- NOTE | 2016-11-22 01:30 | NUR ---
RESTING QUIETLY WITH EYES CLOSED. HAS CPAP MASK ON. NO S/S OF DISTRESS OR DISCOMFORT. BED IS LOW WITH SR UP X2. CALL LIGHT IN REACH.
[2016-11-22 04:23] VITALS: BP 92/70
[2016-11-22 06:22] LABS: BASOPHILS 0.2 % (0-2); EOSINOPHILS 1.3 % (0-7); HEMATOCRIT 25.4 % (42.0-54.0); HEMOGLOBIN 8.5 g/dL (13.5-17.5); IMMATURE GRANULOCYTES 0.4 % (0-5); LYMPHOCYTES 20.8 % (15-50); MCH 33.2 pg (26.0-34.0); MCHC 33.5 g/dL (31.0-37.0); MCV 99.2 fL (80.0-100.0); MEAN PLATELET VOLUME 10.6 fL (7.4-10.4); MONOCYTES 12.4 % (2-11); NEUTROPHILS 64.9 % (40-80); PLATELET COUNT 129 10x3/uL (130-400); RBC 2.56 10x6/uL (4.20-6.10); RDW 15.7 % (11.5-14.5); WBC 5.4 10x3/uL (4.8-10.8)
[2016-11-22 06:36] LABS: INR 1.22 (0.85-1.17); PROTIME 15.3 SECONDS (11.6-15.0)
--- NOTE | 2016-11-22 06:36 | NUR ---
AWAKE, TOOK OFF CPAP TO TAKE MEDICATION. DENIES ANY NEEDS.
[2016-11-22 06:37] LABS: ALBUMIN 2.6 g/dL (3.4-5.0); ALKALINE PHOSPHATASE 50 U/L (46-116); ALT (SGPT) 21 U/L (10-68); CALC OSMOLALITY 287 mosm/kg (275-300); CALCIUM 7.6 mg/dL (8.5-10.1); CARBON DIOXIDE 29.5 mmol/L (21.0-32.0); CHLORIDE - SERUM 110 mmol/L (98-107); CREATININE - SERUM 0.8 mg/dL (0.6-1.3); GLUCOSE 101 mg/dL (74-106); POTASSIUM - SERUM 3.3 mmol/L (3.5-5.1); PROTEIN - SERUM 5.5 g/dL (6.4-8.2); SODIUM 144 mmol/L (136-145); UREA NITROGEN 15 mg/dL (7-18); eGFR NON AFRICAN AMERICAN > 90 mL/min (90-120)
[2016-11-22 08:00] VITALS: BP 135/81
--- NOTE | 2016-11-22 08:12 | NUR ---
PT AOX4 RESP EVEN AND NONLABORED PT DENIES NEEDS AT THIS TIME IV TO RIGHT FOREARM PATENT AND INTACT SRX2 BED AT LOWEST POSITION AND CALL LIGHT WITHIN REACH WILL CONTINUE TO MONITOR
[2016-11-22 12:00] VITALS: BP 123/76
--- NOTE | 2016-11-22 16:23 | NUR ---
[facility] HERE TO TAKE PT TO HOME
[2016-11-22] MEDS ORDERED: PROTONIX FOR OR40 MG PT (16:24)
[2016-11-22] MEDS ORDERED: CARAFATE1 G PO (16:24)
--- NOTE | 2016-11-22 18:27 | NUR ---
IV DISCONTINUED WITH CATHETER INTACT AT THIS TIME. PT GIVEN DISCHARGE INSTRUCTIONS AND VERBALIZED UNDERSTANDING AT THIS TIME. PT TAKEN TO PRIVATE VEHICLE VIA WHEELCHAIR AT THIS TIME
== END 2016-11-22 18:29 | disposition home or self-care (01) | DRG 378 ==
LOC: D.ER 09:32 → D.ICU 13:18 → D.M2 11-20 17:12
PROVIDERS: Emergency Medicine; Internal Medicine Gastroenterology; ADMIT Family Medicine
PROC: 0W3P8ZZ Control Bleeding in Gastrointestinal Tract, Via Natural or Artificial Opening Endoscopic (ICD-10-PCS; 2016-11-18)
PROC: 3E0G8GC Introduction of Other Therapeutic Substance into Upper GI, Via Natural or Artificial Opening Endoscopic (ICD-10-PCS; principal; 2016-11-18 16:00)
DX: K31.82 Dieulafoy lesion (hemorrhagic) of stomach and duodenum (principal); D62 Acute posthemorrhagic anemia; I48.2 Chronic atrial fibrillation; Z79.01 Long term (current) use of anticoagulants; I73.9 Peripheral vascular disease, unspecified; I25.10 Atherosclerotic heart disease of native coronary artery without angina pectoris; I10 Essential (primary) hypertension; E86.1 Hypovolemia

== ENCOUNTER → 2018-11-24 16:33 | Outpatient (CLI) | payer MEDICARE ==
[2016-11-19 10:02] VITALS: BMI 30.2
[~2018-11-24 16:33] MED LIST changes: +CARAFATE1 G PO; +PROTONIX FOR OR40 MG PT
[2018-11-24 18:35] LABS: BASOPHILS 0.2 % (0-2); EOSINOPHILS 0.6 % (0-7); HEMOGLOBIN 17.4 g/dL (13.5-17.5); IMMATURE GRANULOCYTES 0.3 % (0-5); LYMPHOCYTES 21.7 % (15-50); MCH 34.8 pg (26.0-34.0); MCHC 36.3 g/dL (31.0-37.0); MEAN PLATELET VOLUME 11.1 fL (7.4-10.4); MONOCYTES 12.2 % (2-11); RDW 12.7 % (11.5-14.5); WBC 9.4 10x3/uL (4.8-10.8)
[2018-11-24 18:50] LABS: PLATELET COUNT 160 10x3/uL (130-400)
[2018-11-24 20:09] LABS: ERYTHROCYTE SEDIMENTATION RATE 5 mm/hr (0-20)
== END | disposition home or self-care (01) ==
LOC: D.LABREF 16:33
PROVIDERS: ATTEND Orthopaedic Surgery
DX: M25.561 Pain in right knee (principal)

== ENCOUNTER → 2020-01-24 12:51 | Outpatient (CLI) | payer MEDICARE ==
[2016-11-19 10:02] VITALS: BMI 30.2
== END | disposition home or self-care (01) ==
LOC: D.US 12:51
DX: R60.0 Localized edema (principal); M79.604 Pain in right leg

== ENCOUNTER 2020-01-27 12:19 | Inpatient (IN) | payer MEDICARE ==
[~2020-01-27] VITALS: Ht 190.5 cm; Wt 97.5 kg
--- NOTE | ~2020-01-27 | HEMODYNAMI ---
PATIENT:REGINO ANDERSON MEDICAL RECORD: [id number] : 43 LOCATION:[facility] D.2301 ADMISSION DATE: 01/27/20 Generatedon:01/30/202010:05 Patient name: REGINO ANDERSON Patient #: [id number] SSN: [id number] : 1945 Date of study: 01/30/2020 Page: Of Hemodynamic Procedure Report Patient Data Patient Demographics Procedure consent was obtained First Name: REGINO Gender: Male Last Name: JUSTIN : 1945 Middle Initial: MARTINEZ Age: 74 year(s) Patient #: [id number] Race: SSN: [id number] Additional ID: [id number] Contact details [address]: [address] [place] [address] State: [place] City: [place] Zip code: [address] Past Medical History Allergies: No known allergies Admission Admission Data Admission Date: 01/27/2020 Admission Time: 13:38 Arrival Date: 01/27/2020 Arrival Time: 13:38 Admit Source: Other Insurance Payor: Medicare Room #: D.2301 [facility] #: [id number] Height (in.): 74.8 BSA: 2.25 (m2) Height (cm.): 190 BMI: 26.87 (kg/m2) Weight (lbs.): 213.85 Weight (kg.): 97 Lab Results Lab Result Date: 01/30/2020 Lab Result Time: 0:00 Biochemistry Name Units Result Min Max BUN mg/dl 23 --(----)-* 7 18 Creatinine mg/dl 0.8 --(-*--)-- 0.6 1.3 eGFR ml/min 90 --(*---)-- 90 120 NONAFRICAN CBC Name Units Result Min Max Hemoglobin g/dl 7.7 *-(----)-- 13.5 17.5 Procedure Procedure Types Cath Procedure Peripheral Cath Diagnostic Procedure Crayon Grader Peripheral Procedures AFRO (Diagnostic) Abd/Extremity Extremities Right Lower Ext Arterio Procedure Description Procedure Date Procedure Date: 01/30/2020 Procedure Start Time: 9:39 Procedure End Time: 10:02 Procedure Staff Name Function Charlie Lama MD Performing Physician Kandace García RT Monitor Alondra Garrett RT Scrub Adriana Leonard RN Nurse Procedure Data Cath Procedure Fluoroscopy Diagnostic fluoroscopy Total fluoroscopy Time: 3 time: 3 min min Diagnostic fluoroscopy Total fluoroscopy dose: 94 dose: 94 mGy mGy Contrast Material Contrast Material Type Amount (ml) Isovue 300 51 Entry Location Entry Primary Successful Side Size Upsize Upsize Entry Closure Negrete ccessful Closure Location (Fr) 1 (Fr) 2 (Fr) Remarks Device Remarks Radial Right 6 Fr Mechanical artery Short Compression Estimated blood loss: 5 ml Diagnostic catheters Device Type Used For End Catheter Placement DIAGNOSTIC Aqua Multi-vessel Berenstein 125cm 5Fr Angiography catheter ([id number]) Procedure Complications No complications Procedure Medications Medication Administration Route Dosage Oxygen etCO2 Nasal cannula 4 l/min Lidocaine 2% added to field 20 0.9% NaCl I.V. 250 ml/hr Radial Cocktail I.A. 1 syringe (Verapamil 2mg/Nitro 400mcg/Heparin 1500units) Heparin Bolus 1000 units Hemodynamics Rest BSA: 2.25 (m2) HGB: 7.7 (g/dl) O2 Consumption: Estimated: 269.91 (ml/min) O2 Con sumption indexed: Estimated:119.96 (ml/min/m) Heart Rate: 83 (bpm) Snapshots Pre Cath Intra NCS Post Cath Vital Signs Time Heart Resp SPO2 etCO2 NIBP Rhythm Pain Sedation Rate (ipm) (%) (mmHg) (mmHg) Status Level (bpm) 9:29:39 109 27 100 0 121/83(96) A-Fib 0 (11) 9(A) , No pain 9:33:57 91 26 100 0 122/65(87) A-Fib 0 (11) 9(A) , No pain 9:38:15 108 25 100 0 114/60(84) A-Fib 0 (11) 9(A) , No pain 9:42:29 93 26 100 0 120/69(92) A-Fib 0 (11) 9(A) , No pain 9:46:49 95 27 100 0 108/62(77) A-Fib 0 (11) 9(A) , No pain 9:51:03 103 26 96 0 107/67(83) A-Fib 0 (11) 9(A) , No pain 9:55:15 116 24 94 0 121/71(99) A-Fib 0 (11) 9(A) , No pain 9:59:31 94 17 100 0 104/70(97) A-Fib 0 (11) 9(A) , No pain Medications Time Medication Route Dose Verified Delivered Reason Notes Effectiveness by by 9:28:53 Oxygen etCO2 4 l/min Charlie Wright used for Nasal Kelby Leonard RN procedure cannula 9:29:00 Lidocaine 2% added 20ml Charlie Guerra for local to vial Kelby Lama MD anesthetic field 9:29:15 0.9% NaCl I.V. 250 Charlie Wright Per physician ml/hr Kelby Leonard RN 9:46:41 Radial I.A. 1 Charlie Guerra for used 1 ml Cocktail syringe Kelby Lama MD vasodilation of (Verapamil cocktail. 2mg/Nitro 400mcg/Heparin 1500units) 9:49:03 Heparin Bolus IA 1000 Charlie Guerra for units Kelby Lama MD anticoagulation Procedure Log Time Note 8:56:23 Informed consent obtained and on chart 9:01:19 Admit Source: Other 9:01:21 Arrival Date: 01/27/2020 1:38:00 PM 9:04:12 Insurance Payor : Medicare 9:08:50 Patient Height : 74.8 inches 9:08:53 Patient Weight : 213.85 lbs 9:10:22 Lab Result : eGFR NONAFRICAN 90 ml/min 9:10:22 Lab Result : Hemoglobin 7.7 g/dl 9:10:22 Lab Result : BUN 23 mg/dl 9:10:22 Lab Result : Creatinine 0.8 mg/dl 9:10:33 Diagnostic Cath Status : Urgent 9:10:57 Adriana Leonard RN sent for patient. Start room use. 9:11:00 Procedure Status Peripheral. 9:11:52 Time tracking: Regular hours (M-F 7:00 - 5:00) 9:11:56 Plan of Care:Hemodynamics will remain stable., Cardiac rhythm will remain stable., Comfort level will be maintained., Respiratory function will remain adequate., Patient/ family verbilizes understanding of procedure., Procedure tolerated without complication., Recovers from procedure without complications.. 9:16:12 Patient received from ICU to CCL 1 Alert and oriented. Tansferred to table in Supine position. 9:16:13 Warm blankets applied, and theresa hugger turned on for patient comfort. 9:16:14 Warm blankets applied, and theresa hugger turned on for patient comfort. 9:16:15 Correct patient and procedure confirmed by team. 9:16:15 ECG and BP/O2 sat monitors applied to patient. 9:28:29 Vital chart was started 9:28:53 Oxygen 4 l/min etCO2 Nasal cannula was administered by Adriana Leonard RN; used for procedure; Verbal order read back and verified. 9:29:00 Lidocaine 2% 20ml vial added to field was administered by Charlie Lama MD; for local anesthetic; Verbal order read back and verified. 9:29:15 0.9% NaCl 250 ml/hr I.V. was administered by Adriana Leonard RN; Per physician; Verbal order read back and verified. 9:29:27 Baseline sample Acquired. 9:31:11 Baseline sample Acquired. 9:31:29 Rhythm: atrial fibrillation 9:31:32 Full Disclosure recording started 9:31:42 H&P Date Dictated: 01/30/2020 New H&P dictated by physician.. 9:31:44 Pre-procedure instructions explained to patient. 9:31:44 Pre-op teaching completed and patient verbalized understanding. 9:31:48 Family unavailable. 9:31:50 Patient NPO since Midnight. 9:31:57 Is the patient allergic to Iodine/contrast media? No. 9:31:58 Was the patient premedicated? Yes 9:34:31 Is patient on blood thinner?No 9:34:33 Patient diabetic? No. 9:34:37 Previous problem with sedation/anesthesia? No ? 9:34:39 Snore? Yes 9:34:44 Sleep apnea? No 9:34:48 Deviated septum? No 9:34:48 Opens mouth fully? Yes 9:34:49 Sticks out tongue? Yes 9:34:54 Airway obstruction? No ? 9:34:56 Dentures? No ? 9:35:17 Pre procedure: right dorsailis pedis pulse Doppler 9:35:21 Pre procedure: left dorsailis pedis pulse Doppler 9:35:34 Patient pain scale 0/10 ?. 9:35:45 IV patent on arrival in right wrist with 0.9% NaCl at O. 9:35:48 Lab results completed and on chart. 9:36:14 Bilateral groins area was prepped with chlora-prep and draped in sterile fashion 9:36:22 Right Radial area was prepped with chlora-prep and draped in sterile fashion 9:36:25 Alarms reviewed by RDutch N. 9:36:26 Sharps counted by scrub and verified by R.N. 9:36:26 Physician arrived 9:36:27 --------ALL STOP TIME OUT------ 9:36:28 Final Timeout: patient, procedure, and site verified with staff and physician. All members of the team are in agreement. 9:36:40 Bilateral groins site verified by team. 9:36:44 Right Radial site verified by team. 9:36:49 Fire Safety Assessment: A--An alcohol-based skin anteseptic being used preoperatively., C--Open oxygen or nitrous oxide is being used., D--An ESU, laser, or fiber-optic light is being used. 9:36:53 Physical assessment completed. ASA score P 4 - A patient with severe systemic disease that is a constant threat to life as per Charlie Lama MD. 9:37:13 1) 90+ Normal kidney functon but urine findings or structural abnormalities or genetic trait point to kidney disease. 9:37:16 Maximum allowable contrast dose (3.7 X eGFR X 0.75)250 ml. 9:37:20 Sedation plan: IV Moderate Sedation Medication:Versed, Fentanyl 9:37:37 Use device set Acist 9:37:39 ACIST Syringe (28783) opened to sterile field. 9:37:39 ACIST Hand Control (26504) opened to sterile field. 9:37:39 ACIST Manifold (36459) opened to sterile field. 9:37:50 Procedure started. 9:38:56 SHEATH 6FR RAIN ([id number]) opened to sterile field. 9:39:04 EMERALD Guide Wire (876-184) opened to sterile field. 9:39:16 Local anesthetic to right radial artery with Lidocaine 2% by hCarlie Lama MD.INITIAL ACCESS ONLY 9:44:59 A 6 Fr Short sheath was inserted into the Right Radial artery 9:45:13 A DIAGNOSTIC Aqua Berenstein 125cm 5Fr catheter ([id number]) was advanced over the wire and used for Multi-vessel Angiography. 9:46:41 Radial Cocktail (Verapamil 2mg/Nitro 400mcg/Heparin 1500units) 1 syringe I.A. was administered by Charlie Lama MD; for vasodilation; used 1 ml of cocktail. Verbal order read back and verified. 9:49:03 Heparin Bolus 1000 units IA was administered by Charlie Lama MD; for anticoagulation; Verbal order read back and verified. 9:58:19 Right leg runoff performed. 9:59:12 Catheter removed. 9:59:32 Sheath removed intact; hemostasis achieved with Mechanical Compression to the Right Radial artery. 9:59:41 Procedure ended.(Physican Out) 10:00:29 Fluoroscopy time 03.00 minutes. 10:00:32 Fluoroscopy dose: 94 mGy 10:00:32 Flurop Dose total: 94 10:00:38 Dose Area Product 7244 mGy/cm. 10:00:59 Contrast amount:Isovue 300 51ml. 10:01:03 Maximum allowable dose exceeded? No. 10:01:04 Sharps counted by scrub and verified by R.N. 10:01:08 [place] band inflated with 10cc of air. 10:01:18 ZEPHYR REGULAR TR BAND (148203) opened to sterile field. 10:01:35 Insertion/operative site no bleeding no hematoma. 10:01:39 Post right radial artery:stable 10:01:45 Post Procedure Pulses reassessed and unchanged 10:01:56 Post procedure rhythm: unchanged. 10:01:58 Estimated blood loss: 5 ml 10:02:03 Post procedure instruction explained to patient.Patient verbalizes understanding. 10:02:04 Patient needs reinforcement of post procedure teaching. 10:02:26 Procedure type changed to Cath procedure, Peripheral Cath Diagnostic Procedure, Crayon Grader Peripheral Procedures, AFRO (Diagnostic), Abd/Extremity, Extremities, Right Lower Ext Arterio 10:02:27 Procedure and supply charges have been captured, reviewed, submitted and are correct. 10:02:33 Procedure Complication : No complications 10:02:35 Vital chart was stopped 10:02:44 AFRO Findings: PVD: mild to moderate (<70%) 10:02:46 Operative report dictated upon procedure completion. 10:02:46 See physician's report for complete and final results. 10:02:49 ACT drawn and resulted at 275 seconds. (normal therapeutic range 180-240 seconds). 10:02:53 Report given to ICU. 10:02:55 Patient transfered to ICU with Stretcher. 10:02:58 Procedure ended. 10:02:58 Full Disclosure recording stopped 10:03:01 End room use (Document Last) Device Usage Item Name Manufacture Quantity Catalog Hospital Part Current Minimal Lot # / Number Charge Number Stock Stock Serial# Code ACIST Acist 1 [id number] [id number] [id number] [id number] 20 Syringe Medical (92184) Systems Inc ACIST Hand Acist 1 82966 [id number] [id number] [id number] 5 Control Medical (44936) Systems Inc ACIST Acist 1 42413 650525 216157 483578 5 Manifold Medical (99903) Systems Inc SHEATH 6FR Cardinal 1 [id number] 902015 [id number] 275926 5 [facility] (1622651) EMERALD Cardinal 1 502-455 351562 796104 205414 5 Guide Wire [facility] (502455) DIAGNOSTIC Cardinal 1 [id number] [id number] 183891 467639 5 [employer] Berenstein 125cm 5Fr catheter ([id number]) ZEPHYR Cardinal 1 658305 780509 0400489 478008 5 REGULAR TR Health BAND (660955) Signature Audit [place] Stage Time Signature Unsigned Intra-Procedure 01/30/2020 Kandace García 10:05:09 AM RT(R) Intra-Procedure 01/30/2020 Adriana Leonard RN 10:05:30 AM Intra-Procedure 01/30/2020 Charlie Lama MD 10:05:48 AM [facility] [address] [place] [address]
[2020-01-27] MEDS ORDERED: LISINOPRIL10 MG PO (12:34)
[2020-01-27 14:03] LABS: BASOPHILS 0.1 % (0-2); EOSINOPHILS 0.3 % (0-7); HEMATOCRIT 38.3 % (42.0-54.0); IMMATURE GRANULOCYTES 0.3 % (0-5); LYMPHOCYTES 9.2 % (15-50); MCH 33.7 pg (26.0-34.0); MCHC 33.9 g/dL (31.0-37.0); MCV 99.2 fL (80.0-100.0); MEAN PLATELET VOLUME 10.5 fL (7.4-10.4); MONOCYTES 17.7 % (2-11); NEUTROPHILS 72.4 % (40-80); PLATELET COUNT 177 10x3/uL (130-400); RBC 3.86 10x6/uL (4.20-6.10); RDW 13.3 % (11.5-14.5); WBC 11.7 10x3/uL (4.8-10.8)
[2020-01-27 14:12] LABS: APTT 43.3 SECONDS (22.8-39.4); CALC OSMOLALITY 277 mosm/kg (275-300); CALCIUM 8.5 mg/dL (8.5-10.1); CARBON DIOXIDE 30.1 mmol/L (21.0-32.0); CHLORIDE - SERUM 99 mmol/L (98-107); CREATININE - SERUM 0.9 mg/dL (0.6-1.3); GLUCOSE 108 mg/dL (74-106); INR 1.68 (0.85-1.17); POTASSIUM - SERUM 3.8 mmol/L (3.5-5.1); PROTIME 19.6 SECONDS (11.6-15.0); SODIUM 136 mmol/L (136-145); UREA NITROGEN 26 mg/dL (7-18); eGFR NON AFRICAN AMERICAN 87 mL/min (90-120)
[2020-01-27 14:18] LABS: ALBUMIN 3.1 g/dL (3.4-5.0); ALKALINE PHOSPHATASE 60 U/L (30-120); ALT (SGPT) 19 U/L (10-68); BILIRUBIN - TOTAL 1.74 mg/dL (0.2-1.3); PROTEIN - SERUM 7.2 g/dL (6.4-8.2)
[2020-01-27 15:21] LABS: CKMB 0.8 U/L (0.0-3.6); CREATINE KINASE 313 UL (21-232)
[2020-01-27 16:34] VITALS: BMI 26.9
--- NOTE | 2020-01-27 19:32 | NUR ---
PATIENT RESTING IN BED WITH NO S/S OF DISTRESS. PATIENT'S AT BEDSIDE CONCERNED AND WANTING TO SPEAK TO THE DOCTOR. SHE IS CONCERNED THAT THE DOCTOR DOES NOT THINK THE PATIENT HAS A SNAKE BITE AND IS NOT TREATING THOUGH THE PATIENT HAS BEEN BITTEN. I EXPLAINED TO THE PATIENT THAT "SNAKE BITE" IS LISTED IN THE DOC NOTES. PATIENT'S STATED SHE IS VERY RELIEVED AND JUST WANTED TO MAKE SURE. DENIES OTHER NEEDS AT THIS TIME. BED IN LOWEST POSITION AND CALL LIGHT WITHIN REACH. ENCOURAGED THE PATIENT TO CALL IF HE HAS NEEDS. WILL CONTINUE TO MONITOR.
[2020-01-27 20:00] VITALS: BP 147/54
--- NOTE | 2020-01-27 21:43 | NUR ---
ADMINISTERED MEDS PER ORDERS. DENIES OTHER NEEDS. WILL CONTINUE TO MONITOR.
[2020-01-28] VITALS: BP 121/67
[2020-01-28 04:00] VITALS: BP 111/63
[2020-01-28 06:32] LABS: BASOPHILS 0.1 % (0-2); EOSINOPHILS 1.3 % (0-7); HEMATOCRIT 33.9 % (42.0-54.0); HEMOGLOBIN 11.2 g/dL (13.5-17.5); IMMATURE GRANULOCYTES 0.2 % (0-5); LYMPHOCYTES 14.1 % (15-50); MCH 32.9 pg (26.0-34.0); MCV 99.7 fL (80.0-100.0); MEAN PLATELET VOLUME 10.5 fL (7.4-10.4); MONOCYTES 18.7 % (2-11); NEUTROPHILS 65.6 % (40-80); PLATELET COUNT 162 10x3/uL (130-400); RDW 13.2 % (11.5-14.5); WBC 9.1 10x3/uL (4.8-10.8)
[2020-01-28 07:20] LABS: ALBUMIN 2.6 g/dL (3.4-5.0); ALKALINE PHOSPHATASE 56 U/L (30-120); ALT (SGPT) 16 U/L (10-68); BILIRUBIN - TOTAL 1.62 mg/dL (0.2-1.3); CALC OSMOLALITY 279 mosm/kg (275-300); CALCIUM 8.4 mg/dL (8.5-10.1); CARBON DIOXIDE 29.1 mmol/L (21.0-32.0); CHLORIDE - SERUM 103 mmol/L (98-107); CREATINE KINASE 157 UL (21-232); CREATININE - SERUM 0.9 mg/dL (0.6-1.3); GLUCOSE 108 mg/dL (74-106); SODIUM 138 mmol/L (136-145); UREA NITROGEN 22 mg/dL (7-18); eGFR NON AFRICAN AMERICAN 87 mL/min (90-120)
--- NOTE | 2020-01-28 08:49 | NUR ---
PT ALERT X 4. BREATH SOUNDS CLEAR BILAT. IV TO LEFT FOREARM, PATENT, DRESSING CDI. RIGHT LOWER LEG AND KNEE SWOLLEN AND RED. PT REPORTING PAIN OF 4/10, WILL CONTINUE TO MONITOR. AT BEDSIDE. BED LOW, CALL LIGHT IN REACH. NO OTHER NEEDS AT THIS TIME
[2020-01-28 09:04] VITALS: BP 105/68
--- NOTE | 2020-01-28 12:44 | NUR ---
1230 12 FR COUDE CATHETER INSERTED INTO MEATUS OF PENIS WITH NO DIFFICULTIES. DARK ROBER URINE RETURNED WITH NO BLEEDING OR BLOODY URINE OBSERVED. 10 CC SALINE INJECTED INTO CATHETER BALLOON. STAT LOCK ATTACHED TO CATHETER AND THEN TO PATIENTS RIGHT THIGH.
[2020-01-28 13:13] VITALS: BP 131/76
[2020-01-28 14:20] LABS: NEUT - BF 45 %
--- NOTE | 2020-01-28 17:58 | NUR ---
I have reviewed this patient and I concur with the Shift Assessment completed by the Licensed Practical Nurse today this shift.
--- NOTE | 2020-01-28 19:05 | NUR ---
PATIENT RESTING IN BED WITH NO S/S OF DISTRESS. INSTRUCTED PATIENT ON USE OF DIETITIAN ASSISTANT. PATIENT VERBALIZED UNDERSTANDING AND DENIES OTHER NEEDS AT THIS TIME. BED IN LOWEST POSITION AND CALL LIGHT WITHIN REACH. ENCOURAGED THE PATIENT TO CALL IF HE HAS NEEDS. WILL CONTINUE TO MONITOR.
[2020-01-28 20:32] VITALS: BP 133/66
[2020-01-28 23:36] VITALS: BP 109/50
[2020-01-29] VITALS (16 sets, daily range): BP systolic 93–135; BP diastolic 45–97; Ht 190.5 cm; Wt 97.5 kg
[2020-01-29 01:06] LABS: BILIRUBIN NEGATIVE (NEGATIVE); GLUCOSE NEGATIVE (NEGATIVE); KETONE NEGATIVE (NEGATIVE); NITRITE NEGATIVE (NEGATIVE); UROBILINOGEN NORMAL (NORMAL)
[2020-01-29 01:07] LABS: BACTERIA FEW /hpf (NEGATIVE); EPITHELIAL CELLS 0-5 /hpf (0-5); RED CELLS - URINE 0-5 /hpf (0-5); WHITE CELLS - URINE 0-5 /hpf (NEGATIVE)
[2020-01-29 04:35] LABS: BASOPHILS 0.2 % (0-2); EOSINOPHILS 0.3 % (0-7); HEMATOCRIT 28.2 % (42.0-54.0); HEMOGLOBIN 9.2 g/dL (13.5-17.5); IMMATURE GRANULOCYTES 0.4 % (0-5); LYMPHOCYTES 9.7 % (15-50); MCH 32.4 pg (26.0-34.0); MCHC 32.6 g/dL (31.0-37.0); MCV 99.3 fL (80.0-100.0); MEAN PLATELET VOLUME 10.1 fL (7.4-10.4); MONOCYTES 19.9 % (2-11); NEUTROPHILS 69.5 % (40-80); PLATELET COUNT 168 10x3/uL (130-400); RBC 2.84 10x6/uL (4.20-6.10); RDW 12.8 % (11.5-14.5)
[2020-01-29 04:45] LABS: WBC 13.1 10x3/uL (4.8-10.8)
[2020-01-29 04:50] LABS: CALC OSMOLALITY 277 mosm/kg (275-300); CALCIUM 7.5 mg/dL (8.5-10.1); CARBON DIOXIDE 31.5 mmol/L (21.0-32.0); CHLORIDE - SERUM 104 mmol/L (98-107); CREATININE - SERUM 0.9 mg/dL (0.6-1.3); GLUCOSE 113 mg/dL (74-106); MAGNESIUM - SERUM 1.9 mg/dL (1.8-2.4); PHOSPHOROUS 2.5 mg/dL (2.5-4.9); POTASSIUM - SERUM 3.9 mmol/L (3.5-5.1); SODIUM 137 mmol/L (136-145); UREA NITROGEN 20 mg/dL (7-18); eGFR NON AFRICAN AMERICAN 87 mL/min (90-120)
--- NOTE | 2020-01-29 08:03 | NUR ---
NOTIFIED CHARGE NURSE OF NEED FOR DOPPLER TO RIGHT LEG AND NOTIFY SURGEON OF SWELLING AND DECREASE PULSE TO RIGHT LEG. REQUEST MD PHONE NUMBER OR HOW TO NOTIFY OF STATUS. NO INSTRUCTIONS GIVEN AND RETURNED TO ROOM TO ABLE MORE ABSORANT PADS. GEOVANNY CRAWFORD PAGED PEREZ SANCHEZ AND SEEN PT AT BEDSIDE AND SHE NOTIFIED MD OF STATUS OF RIGHT LEG.
[2020-01-29 10:43] LABS: APTT 54.5 SECONDS (22.8-39.4); INR 1.86 (0.85-1.17); PROTIME 21.2 SECONDS (11.6-15.0)
[2020-01-29 13:20] LABS: HEMATOCRIT 26.4 % (42.0-54.0); HEMOGLOBIN 8.8 g/dL (13.5-17.5)
--- NOTE | 2020-01-29 14:54 | NUR ---
DR FARRIS CAME IN DURING PROCEDURE, COOKIE COHEN ALSO CAME IN AND CHECKED PULSES, TWORLEY.
--- NOTE | 2020-01-29 19:51 | NUR ---
DR. PRAKASH HERE IN TO SEE PATIENT. NEW ORDER RECEIVED FOR TYLENOL FOR TEMP.
[2020-01-29 20:26] LABS: BASOPHILS 0.2 % (0-2); EOSINOPHILS 0.2 % (0-7); HEMATOCRIT 26.1 % (42.0-54.0); HEMOGLOBIN 8.7 g/dL (13.5-17.5); IMMATURE GRANULOCYTES 0.3 % (0-5); MCH 32.1 pg (26.0-34.0); MCHC 33.3 g/dL (31.0-37.0); MCV 96.3 fL (80.0-100.0); MEAN PLATELET VOLUME 10.4 fL (7.4-10.4); MONOCYTES 17.5 % (2-11); NEUTROPHILS 72.8 % (40-80); PLATELET COUNT 167 10x3/uL (130-400); RBC 2.71 10x6/uL (4.20-6.10); RDW 13.3 % (11.5-14.5)
[2020-01-29 20:50] LABS: CALC OSMOLALITY 274 mosm/kg (275-300); CALCIUM 7.6 mg/dL (8.5-10.1); CARBON DIOXIDE 25.7 mmol/L (21.0-32.0); CHLORIDE - SERUM 104 mmol/L (98-107); CREATININE - SERUM 0.8 mg/dL (0.6-1.3); GLUCOSE 117 mg/dL (74-106); POTASSIUM - SERUM 4.2 mmol/L (3.5-5.1); SODIUM 135 mmol/L (136-145); UREA NITROGEN 23 mg/dL (7-18); eGFR NON AFRICAN AMERICAN > 90 mL/min (90-120)
[2020-01-30] VITALS (23 sets, daily range): BP systolic 90–140; BP diastolic 48–95
--- NOTE | 2020-01-30 00:15 | NUR ---
DR. PRAKASH HERE IN TO SEE PATIENT. NO NEW ORDERS AT THIS TIME. CALL LIGHT WITHIN REACH, BED IN LOW POSITION, AND WILL CONTINUE TO MONITOR.
[2020-01-30 04:33] LABS: BASOPHILS 0.1 % (0-2); EOSINOPHILS 0.7 % (0-7); HEMATOCRIT 23.1 % (42.0-54.0); HEMOGLOBIN 7.7 g/dL (13.5-17.5); IMMATURE GRANULOCYTES 0.3 % (0-5); LYMPHOCYTES 12.5 % (15-50); MCH 32.2 pg (26.0-34.0); MCHC 33.3 g/dL (31.0-37.0); MCV 96.7 fL (80.0-100.0); MEAN PLATELET VOLUME 10.3 fL (7.4-10.4); MONOCYTES 17.4 % (2-11); PLATELET COUNT 160 10x3/uL (130-400); RBC 2.39 10x6/uL (4.20-6.10); RDW 13.3 % (11.5-14.5); WBC 9.1 10x3/uL (4.8-10.8)
[2020-01-30 04:38] LABS: INR 1.53 (0.85-1.17); PROTIME 18.3 SECONDS (11.6-15.0)
[2020-01-30 04:41] LABS: APTT 40.8 SECONDS (22.8-39.4)
[2020-01-30 04:44] LABS: CALC OSMOLALITY 282 mosm/kg (275-300); CALCIUM 7.9 mg/dL (8.5-10.1); CARBON DIOXIDE 29.9 mmol/L (21.0-32.0); CHLORIDE - SERUM 106 mmol/L (98-107); CREATININE - SERUM 0.8 mg/dL (0.6-1.3); GLUCOSE 111 mg/dL (74-106); PHOSPHOROUS 1.9 mg/dL (2.5-4.9); POTASSIUM - SERUM 3.9 mmol/L (3.5-5.1); SODIUM 139 mmol/L (136-145); UREA NITROGEN 23 mg/dL (7-18); VANCOMYCIN - TROUGH 3.7 ug/mL (10.0-20.0); eGFR NON AFRICAN AMERICAN > 90 mL/min (90-120)
--- NOTE | 2020-01-30 07:00 | NUR ---
waiting on protonix from pharmacy.
--- NOTE | 2020-01-30 11:43 | NUR ---
STARTED 1ST UNIT OF PRBC, PT TOLERATING WELL. WILL CONTINUE TO MONITOR.
--- NOTE | 2020-01-30 12:59 | NUR ---
PT AGGITATED. ATTEMPTED TO CALM PT DOWN UNSUCCESSFULLY. CALLED SO SHE COULD TALK TO HIM. WILL CONTINUE TO MONITOR.
--- NOTE | 2020-01-30 14:11 | NUR ---
1ST UNIT OF PRBC COMPLETE. VSS. 2ND UNIT OF PRBC STARTED, WILL MONITOR.
--- NOTE | 2020-01-30 16:24 | NUR ---
PT QUESTIONING HOW TO HANDLE POA AND LIVING WILL. ADVISED TO BRING ALL PAPERWORK TO US REGARDING THESE ITEMS SO WE COULD HAVE THEM ON FILE.
[2020-01-31] VITALS (19 sets, daily range): BP systolic 101–134; BP diastolic 49–105
--- NOTE | 2020-01-31 00:12 | NUR ---
2155 PULLED IV OUT - TIP INTACT. DISCONNECTED CATHETER TUBING. DISCONNECTED WOUND VAC TUBING. REMOVED ALL LEADS. 4 IV RESITED TO LEFT HAND X 2 ATTEMPTS. 20 GAUGE CATH.
--- NOTE | 2020-01-31 00:16 | NUR ---
01/31/20 2300 PULLED WOUND VAC TRAC PADS OFF. ATTEMPTED TO PULL OUT IV. ATTEMPTING TO GET OUT OF BED. PT IS PLEASANTLY CONFUSED, BUT IS ENDANGERING HIMSELF BY HIS ATTEMPTS TO GET OUT OF BED AND DISCONNECTING LINES/TUBES. 2345 ORDERS RECEIVED FOR SOFT WRIST RESTRAINTS FOR PT SAFETY.
[2020-01-31 05:15] LABS: APTT 32.9 SECONDS (22.8-39.4); INR 1.42 (0.85-1.17); PROTIME 17.3 SECONDS (11.6-15.0)
[2020-01-31 05:26] LABS: CALC OSMOLALITY 279 mosm/kg (275-300); CALCIUM 7.7 mg/dL (8.5-10.1); CARBON DIOXIDE 27.9 mmol/L (21.0-32.0); CHLORIDE - SERUM 103 mmol/L (98-107); CREATININE - SERUM 0.7 mg/dL (0.6-1.3); GLUCOSE 106 mg/dL (74-106); MAGNESIUM - SERUM 1.7 mg/dL (1.8-2.4); POTASSIUM - SERUM 3.6 mmol/L (3.5-5.1); SODIUM 139 mmol/L (136-145); UREA NITROGEN 19 mg/dL (7-18); VANCOMYCIN - TROUGH 11.8 ug/mL (10.0-20.0); eGFR NON AFRICAN AMERICAN > 90 mL/min (90-120)
[2020-01-31 05:27] LABS: BASOPHILS 0.2 % (0-2); EOSINOPHILS 1.1 % (0-7); HEMATOCRIT 23.8 % (42.0-54.0); HEMOGLOBIN 8.2 g/dL (13.5-17.5); IMMATURE GRANULOCYTES 0.1 % (0-5); LYMPHOCYTES 13.1 % (15-50); MCH 32.2 pg (26.0-34.0); MCHC 34.5 g/dL (31.0-37.0); MEAN PLATELET VOLUME 10.2 fL (7.4-10.4); MONOCYTES 16.2 % (2-11); NEUTROPHILS 69.3 % (40-80); PLATELET COUNT 172 10x3/uL (130-400); RBC 2.55 10x6/uL (4.20-6.10); RDW 13.8 % (11.5-14.5); WBC 8.1 10x3/uL (4.8-10.8)
[2020-01-31 05:37] LABS: MCV 93.3 fL (80.0-100.0)
[2020-01-31 05:38] LABS: PHOSPHOROUS 1.2 mg/dL (2.5-4.9)
--- NOTE | 2020-01-31 10:39 | NUR ---
Nutrition follow-up: Diet advanced top full liquids PO intake poor at this time Labs reviewed Wt: 214# Pt was sleeping during time of visit. RDN did not disturb. RDN following.
--- NOTE | 2020-01-31 14:49 | EC ---
PATIENT:REGINO ANDERSON DATE OF SERVICE: 01/27/20 SEX: M MEDICAL RECORD: [id number] DATE OF : 43 LOCATION:[facility] D230 AGE OF PATIENT: 74 ADMISSION DATE: 01/27/20 REFERRING PHYSICIAN: INTERPRETING PHYSICIAN: JESSICA MARCOS MD ECHOCARDIOGRAM REPORT ECHO CHARGES 4 ECHO COMPLETE Date: 01/29/20 CLINICAL DIAGNOSIS: AFIB ECHOCARDIOGRAPHIC MEASUREMENTS (adult normal given) AC root (d.<3.7cm) 3.0 cm LV Septum d (<1.2 cm> 0.9 cm Valve Excursion 1.9 cm LV Septum (systole) 1.2 cm Left Atria (s.<4.0cm> 4.5 cm LVPW d(<1.2cm) 1.0 cm RV (d.<2.3cm) 3.2 cm LVPW (sytole) 1.4 cm LV diastole(<5.6CM) 7.4 cm MV E-F(>70mm/sec) cm LV systole 5.6 cm LVOT Diameter 2.2 cm MV exc.(>10mm) cm Est.ejection fraction (50-75%) % DOPPLER: LVIT cm/sec A 85 cm/sec E cm/sec LA cm/sec RVSP 22.6 mmHg LVOT 104 cm/sec AOP1/2T m/s Asc. Ao 128 cm/sec RVOT 83 cm/sec RA cm/sec PA 101 cm/sec AV Gradient Peak 6.5 mmHg AV Mean 3.3 mmHg AV Area 3.3 cm MV Gradient Peak 3.3 mmHg MV Mean 2.0 mmHg MV Area cm COMMENTS: Director Operating Room: Reji MACI[facility]ANGELIT[facility] [employer] Specialist: Rachele Marcos TAPE# PACS Pericardial Effusion N DATE OF SERVICE: PROCEDURE: Echocardiogram. FINDINGS: 1. Left ventricle is dilated and there are areas of hypokinesis in the anterior wall. However, the patient is in AFib with RVR. EF is reduced around 35% to 40%. 2. Left atrium is moderately dilated at 4.5 cm. The patient is in atrial fibrillation. ECHOCARDIOGRAM REPORT [id number] REGINO ANDERSON 3. The aortic valve is sclerotic and thickened, but there is no evidence of significant aortic stenosis. 4. Mitral valve is not well visualized, but appears to have trace to mild mitral regurgitation. 5. Tricuspid valve has trace to mild tricuspid regurgitation. The RVSP is normal at 22 mmHg. 6. The right ventricle is mildly dilated. 7. The right atrium is mildly dilated with normal function. 8. The pulmonic valve appears to be normal. 9. There is no effusion. TRANSINT:[id number] Voice Confirmation ID: [id number] DOCUMENT ID: [id number] JESSICA MARCOS MD at 1449 CC: [id number] DICTATION DATE: 01/30/20 1031 MUD JACK NOZZLE WORKER: 01/30/20 1109 ADM IN [facility] [address] [id number]
--- NOTE | 2020-01-31 16:41 | NUR ---
PATIENT PULLED OUT IV IN RIGHT HAND. CATHETER TIP INTACT. 20 G IV RESITED TO LEFT WRIST X 1 ATTEMPT.
--- NOTE | 2020-01-31 20:55 | NUR ---
PT REFUSED TO TAKE 2100 MEDS.
[2020-02-01] VITALS (13 sets, daily range): BP systolic 107–128; BP diastolic 70–85
--- NOTE | 2020-02-01 04:44 | NUR ---
PT REMOVED ALL LEADS, PULSE OX, O2, BLOOD PRESSURE CUFF REFUSING TO ALLOW THEM TO STAY ON. PT WAS RESTRAINED AND STILL MANAGED TO TO REMOVE LEADS AGAIN AND ONE LINE FROM HIS WOUND VAC DRESSING.
[2020-02-01 05:33] LABS: BASOPHILS 0.3 % (0-2); EOSINOPHILS 1.7 % (0-7); HEMATOCRIT 25.2 % (42.0-54.0); HEMOGLOBIN 8.3 g/dL (13.5-17.5); IMMATURE GRANULOCYTES 0.3 % (0-5); LYMPHOCYTES 12.5 % (15-50); MCH 31.4 pg (26.0-34.0); MCHC 32.9 g/dL (31.0-37.0); MCV 95.5 fL (80.0-100.0); MEAN PLATELET VOLUME 9.9 fL (7.4-10.4); NEUTROPHILS 69.2 % (40-80); PLATELET COUNT 195 10x3/uL (130-400); RBC 2.64 10x6/uL (4.20-6.10); RDW 13.6 % (11.5-14.5); WBC 7.1 10x3/uL (4.8-10.8)
[2020-02-01 06:03] LABS: APTT 35.4 SECONDS (22.8-39.4); INR 1.36 (0.85-1.17); PROTIME 16.7 SECONDS (11.6-15.0)
[2020-02-01 06:40] LABS: CALC OSMOLALITY 279 mosm/kg (275-300); CALCIUM 7.9 mg/dL (8.5-10.1); CARBON DIOXIDE 29.2 mmol/L (21.0-32.0); CHLORIDE - SERUM 106 mmol/L (98-107); CREATININE - SERUM 0.7 mg/dL (0.6-1.3); GLUCOSE 103 mg/dL (74-106); PHOSPHOROUS 2.6 mg/dL (2.5-4.9); POTASSIUM - SERUM 3.4 mmol/L (3.5-5.1); SODIUM 139 mmol/L (136-145); UREA NITROGEN 17 mg/dL (7-18); VANCOMYCIN - TROUGH 6.3 ug/mL (10.0-20.0); eGFR NON AFRICAN AMERICAN > 90 mL/min (90-120)
--- NOTE | 2020-02-01 07:10 | NUR ---
REPORT RECEIVED FROM OFF GOING NURSE. PATIENT LAYIN IN BED ON BACK WITH EYES CLOSED BREATHING EVENLY NON LABORED. VSS. MARTINEZ INTACT AND DRAINING. RT WRIST IV INFUSING NS. WRIST RESTRAINTS INTACT. WILL CONTINUE WITH PLAN OF CARE. SR UP X 2 BED IN LOW POSITION AND CALL LIGHT IN REACH.
--- NOTE | 2020-02-01 09:00 | NUR ---
PATIENT CONTINUES TO REST QUIETLY. RESTRAINTS IN PLACE. ASSESSMENT COMPLETED. PATEINT HAD SHEA BLANTON. PATIENT IS STABLE AND VSS. WILL CONTINUE TO MONITOR. SR UPX 2 BED IN LOW POSITION AND CALL LIGHT IN REACH.
--- NOTE | 2020-02-01 11:29 | NUR ---
BED BATH GIVEN. COMPLETE LINEN CHANGE PERFORMED. PATIENT TOLERATED WELL. WILL CONITNUE TO MONITOR.SR UP X 2 BED IN LWO POSITION AND CALL LIGHT IN REACH.
--- NOTE | 2020-02-01 12:05 | NUR ---
TAKEN OVER FOR PRIMARY NURSE LUCIO, GLASSES ON, IN BILATERAL WRIST RESTRAINTS, REMOVED AND SKIN ASSESSED. WOUND VAC SEEN TO RIGHT LOWER EXTREMITY WITH 2 WOUNDS, AT 125 CONT. SUCTION. MARTINEZ CATH IN PLACE WITH ROBER COLORED URINE. PLACED ON BEDPAN FOR CRAMPING TO HAVE A BOWEL MOVEMENT. RIGHT FOOT IS SWOLLEN WITH 3+ EDEMA, PLACED UP ON PILLOW. SCD SEEN IN USE TO LEFT LEG. CALL LIGHT AT FINGERTIPS.
--- NOTE | 2020-02-01 13:35 | NUR ---
ASSSITED ON AND OFF BEDPAN AGAIN. START OF BOWEL MOVEMENT. ENCOURAGED TO COUGH AND DEEP BREATH. DENIES ANY FURTHER NEEDS.
--- NOTE | 2020-02-01 14:08 | NUR ---
HERE WITH POWER OF DELINQUENT TAX COLLECTOR ASSISTANT AND LIVING WILL PAPERS WOULD LIKE TO HAVE STATUS UPDATE, GAVE TEXTING NUMBER [phone] TEXT ONLY, REJI PHONE #IS [phone], PER EDGAR PLEASENT
--- NOTE | 2020-02-01 14:09 | NUR ---
PLACED ON BEDPAN AGAIN. IV VANC HUNG. DENIES ANY FURTHER NEEDS AT THIS TIME.
--- NOTE | 2020-02-01 14:49 | NUR ---
I WENT OUT INTO WAITING ROOM AND ANSWERED QUESTIONS TO "HUSEYIN".
--- NOTE | 2020-02-01 14:51 | MORECARE ---
CASE MANAGEMENT DISCHARGE SUMMARY PATIENT: REGINO ANDERSON MARTINEZ UNIT: [id number] ADM DATE: 01/27/20 AGE: 74 : 44 SEX: M ROOM/BED: D.2301 AUTHOR: HARRIS MENDES PHYSICIAN: REFERRING PHYSICIAN: IZAIAH RUCKER DO DATE OF SERVICE: 02/01/20 Discharge Plan Patient Name: REGINO ANDERSON [facility] [facility] 1945 Planned Disposition: Home Health Service Anticipated Discharge Date: Discharge Date: Expected LOS: Initial Reviewer: [email or web address] Initial Review Date: 02/01/2020 Generated: 02/01/20 3:50 pm Patient Name: REGINO ANDERSON Page [phone] at 1451 All edits/amendments must be made on the electronic document DICTATION DATE: 02/01/201449 PIPE FITTER APPRENTICE: NETTA 02/01/20 145 RPT#: [id number] DC DATE: STATUS: ADM IN [facility] [address] [place] [address] END OF REPORT
--- NOTE | 2020-02-01 14:59 | MORECARE ---
CASE MANAGEMENT DISCHARGE SUMMARY PATIENT: REGINO ANDERSON MARTINEZ UNIT: [id number] ADM DATE: 01/27/20 AGE: 74 : 44 SEX: M ROOM/BED: D.2301 AUTHOR: HARRIS MENDES PHYSICIAN: REFERRING PHYSICIAN: IZAIAH RUCKER DO DATE OF SERVICE: 02/01/20 Discharge Plan Patient Name: REGINO ANDERSON [facility] [facility] 1945 Planned Disposition: Home Health Service Anticipated Discharge Date: Discharge Date: Expected LOS: Initial Reviewer: [email or web address] Initial Review Date: 02/01/2020 Generated: 02/01/20 3:59 pm DCPIA - Discharge Planning Initial Assessment Updated by [email or web address]: María Yu on 02/01/20 2:52 pm * Is the patient Alert and Oriented? No * How many steps to enter\exit or inside your home? NONE * [facility] [place] [facility] * Pharmacy [facility] [place] * Preadmission Environment Home with Family * ADLs Independent * Equipment Walker * Other Equipment DENIES ANY ADDITIONAL DME * List name and contact numbers for known caregivers / representatives who currently or will assist patient after discharge: HUSEYIN ANDERSON- - [phone] THE IS HARD OF HEARING SHE HAS A TEXT ONLY PHONE FOR HEARING IMPAIRED [phone] * Verbal permission to speak to the caregivers and representatives has been obtained from the patient. Yes * Community resources currently utilized None * Please name any agencies selected above. N/A * Additional services required to return to the preadmission environment? Yes * Can the patient safely return to the preadmission environment? Yes * Has this patient been hospitalized within the prior 30 days at any hospital? No Last DP export: 02/01/20 1:51 p Patient Name: REGINO ANDERSON Page 10801 at 1450 All edits/amendments must be made on the electronic document DICTATION DATE: 02/01/20 145 MASON HELPER: NETTA 02/01/20 1452 RPT#: [id number] DC DATE: STATUS: ADM IN [facility] [address] [place] [address] END OF REPORT
--- NOTE | 2020-02-01 15:25 | MORECARE ---
CASE MANAGEMENT DISCHARGE SUMMARY PATIENT: REGINO ANDERSON UNIT: [id number] ADM DATE: 01/27/20 AGE: 74 : 44 SEX: M ROOM/BED: D.2301 AUTHOR: VAUGHN,DOC PHYSICIAN: REFERRING PHYSICIAN: IZAIAH RUCKER DO DATE OF SERVICE: 02/01/20 Discharge Plan Patient Name: REGINO ANDERSON [facility]:[place] : 1945 Planned Disposition: Home Health Service Anticipated Discharge Date: Discharge Date: Expected LOS: Initial Reviewer: [email or web address] Initial Review Date: 02/01/2020 Generated: 02/01/20 4:25 pm Comments DCP- Discharge Planning Updated by [email or web address]: María Yu on 02/01/20 2:[address] CM RECEIVED A TELEPHONE CALL FROM LUDWIG, THE CHARGE NURSE. THE PATIENT';S WANTED TO SPEAK WITH THE CORPORATE SECURITY OFFICER AND I MET HER IN THE ICU WAITING ROOM. THE PATIENT'S HAD COPIES OF THE PATIENT'S LIVING WILL AND HER POWER OF CHIEF LIBRARIAN BRANCH TO BE PLACED IN THE CHART. SHE WANTED TO MAKE SURE THAT HER DOES NOT SIGN ANYTHING SHE FEELS HE IS NOT MENTALLY CAPABLE TO MAKE DECISIONS AT THIS TIME. SHE STATES THEY LIVE IN [place] AND WERE VERY ACTIVE MID 70YEAR OLDS PRIOR TO THIS ADMISSION. SHE IS HARD OF HEARING. SHE HAS A CELL PHONE AND A HEARING IMPAIRED TEXT PHONE FOR COMMUNICATION. CM CONFIMRED THE CONTACT PHONE NUMBERS [phone] TEXT PHONE [phone] CELL PHONE. PCP- [facility] IN [place] [facility]- WALKER AND A CPAP. THE CPAP HE OBTAINED A NUMBER OF YEARS AGO. THE PATIENT DOES NOT USE IT OFTEN. DISCUSSED NEEDS AT DISCHARGE. SHE WOULD LIKE TO HAVE HOME HEALTH AT THIS TIME. SHE WOULD LIKE A UPDATE. CM SPOKE W/ THE CHARGE NURSE AND PRIMARY NURSE. PLACED THE LIVING WILL AND POA ON THE FRONT OF THE PATIENT'S CHART. CM CONFIRMED THE 'S CONTACT PHONE NUMBERS W/ THE CHARGE NURSE. ILIANA, THE PRIMARY NURSE. SPOKE W/ THE IN THE WAITING ROOM. THE WOULD ALSO LIKE TO SPEAK WITH THE MD. CM ADVISED THE NURSES HE HAD NOT ROUNDED YET. CM TO FOLLOW TO ASSIST IS APPROPRIATE. DCPIA - Discharge Planning Initial Assessment Updated by [email or web address]: María Yu on 02/01/20 2:52 pm * Is the patient Alert and Oriented? No * How many steps to enter\exit or inside your home? NONE * [facility] [place] [facility] * Pharmacy [facility] IN [place] * Preadmission Environment Home with Family * ADLs Independent * Equipment Walker * Other Equipment DENIES ANY ADDITIONAL DME * List name and contact numbers for known caregivers / representatives who currently or will assist patient after discharge: HUSEYIN ANDERSON- - [phone] THE IS HARD OF HEARING SHE HAS A TEXT ONLY PHONE FOR HEARING IMPAIRED [phone] * Verbal permission to speak to the caregivers and representatives has been obtained from the patient. Yes * Community resources currently utilized None * Please name any agencies selected above. N/A * Additional services required to return to the preadmission environment? Yes * Can the patient safely return to the preadmission environment? Yes * Has this patient been hospitalized within the prior 30 days at any hospital? No Last DP export: 02/01/20 1:59 p Patient Name: REGINO ANDERSON Page [phone] at 1525 All edits/amendments must be made on the electronic document DICTATION DATE: 02/01/201524 BUILDING ARCHITECT: NETTA 02/01/201524 RPT#: [id number] DC DATE: STATUS: ADM IN [facility] [address] [place] [address] END OF REPORT
--- NOTE | 2020-02-01 15:39 | NUR ---
I CALLED JESSI MCCLAIN APN FOR DR PRAKASH AND ASKED THAT SHE OR THE DOCTOR COME TO THE WAITING ROOM AND SPEAK TO THE STATES SHE HAS NOT SEEN A DOCTOR FOR SEVERAL DAYS AND HAS QUESTIONS. JESSI STATES SHE WILL GET AHOLD OF DR PRAKASH AND ASK HIM TO COME TO WAITING ROOM.
--- NOTE | 2020-02-01 16:05 | NUR ---
AT BEDSIDE VISITING.
--- NOTE | 2020-02-01 16:55 | NUR ---
JESSI MCCLAIN APN HERE TO TALK TO PATIENT AND . ALL QUESTIONS ARE ANSWERED.
--- NOTE | 2020-02-01 18:21 | NUR ---
RESTING WITH EYES CLOSED, SNORING. AROUSES EASILY. PATIENT STATES THAT THIS IS THE MOST COMFORTABLE HE HAS FELT ALL DAY. DENIES ANY NEEDS. CALL LIGHT IS IN RIGHT HAND FOR USE.
--- NOTE | 2020-02-01 19:07 | NUR ---
ROUNDS MADE, RECEIVED SHIFT REPORT FROM LEONEL DAVIDSON RN, INFORMED PT THAT I WILL BE BACK SHORTLY TO DO ASSESSMENT, PT VERBALIZES UNDERSTANDING, DENIES NEEDS AT THIS TIME
--- NOTE | 2020-02-01 20:00 | NUR ---
ASSESSMENT PER FLOW SHEET, VS CONTINUE, IV IN LEFT WRIST INTACT WITH DRESSING OVER IV FOR PROTECTION FROM SOFT WRIST RESTRAINTS, INFUSING NS AT 75ML/HR, WOUND VAC IN PLACE, PT REPORTS FLATUS, SMALL BM TODAY, MARTINEZ CATH INTACT DRAINING DARK YELLOW URINE, TELEMETRY ATTACHED, PT C/O RIGHT LEG PAIN, INFORMED PT THAT I WILL ADM PAIN MED, PT VERBALIZES UNDERSTANDING, BED IN LOW POSITION, SIDE RAILS X 2, CALL LIGHT IN REACH
--- NOTE | 2020-02-01 20:14 | NUR ---
ADM PERCOCET PO PER MD ORDERS, SEE EMAR, PT DENIES FURTHER NEEDS
--- NOTE | 2020-02-01 21:21 | NUR ---
PT RESTING WITH EYES CLOSED, AROUSES TO SOFT VERBAL STIMULATION, OBTAINED BP AND HR AT THIS TIME, ADM 2100 MEDS PER MD ORDERS, SEE EMAR, PT RATES RIGHT LEG PAIN 3/10 AT THIS TIME, STATES "THAT PILL YOU GAVE ME REALLY HELPED A LOT", PT DENIES NEEDS AT THIS TIME
--- NOTE | 2020-02-01 22:08 | NUR ---
VANCOMYCIN HUNG IVPB PER MD ORDERS, SEE EMAR
--- NOTE | 2020-02-01 22:38 | NUR ---
PT PROFESSOR OF EARLY CHILDHOOD EDUCATION LIGHT, PT REPORTS LIKE HE NEEDS TO HAVE A BM, PLACED ON BED WIGGINS, INST TO USE CALL LIGHT WHEN FINISHED
--- NOTE | 2020-02-01 22:53 | NUR ---
PT UNABLE TO HAVE BM, PT REMOVED FROM BED WIGGINS, ASSESSMENT PER FLOW SHEET, VS CONTINUE, MARTINEZ CATH IV IN RIGHT WRIST INFUSING VIA PUMP NS AND VANCOMYCIN IVPB PER MD ORDERS, SEE EMAR, WOUND VAG IN PLACE, DRESSING CDI, RIGHT LEG ELEVATED ON PILLOW, PT DENIES NEEDS OR PAIN AT THIS TIME, BED IN LOW POSITION, SIDE RAILS X 2, CALL LIGHT IN REACH
[2020-02-02] VITALS (16 sets, daily range): BP systolic 106–143; BP diastolic 64–96
--- NOTE | 2020-02-02 00:18 | NUR ---
PT WATCHING TV, REQUESTED AND SERVED FRESH H20, PT DENIES FURTHER NEEDS OR PAIN AT THIS TIME
--- NOTE | 2020-02-02 01:55 | NUR ---
PT WATCHING TV, ADM ZOSYN IVPB PER MD ORDERS, SEE EMAR, THIS RN STAYED AT BEDSIDE FOR A SHORT BIT BECAUSE PT WANTED TO "VISIT", PT DENIES FURTHER NEEDS
--- NOTE | 2020-02-02 03:00 | NUR ---
SHIFT ASSESSMENT PER FLOW SHEET, VS CONTINUE, PT HAD SMALL BM, PT CLEANED UP WITH WET WARM WIPES, PINK CHUX CHANGED OUT, WRIST RESTRAINTS REMOVED FOR A FEW MINUTES, PT REPOSITIONED, WRIST RESTRAINTS PLACED BACK ON, PT REQUESTED AND ASSISTED WITH FRESH H20, PT DENIES FURTHER NEEDS
--- NOTE | 2020-02-02 03:33 | NUR ---
PT SHAMPOO PERSON LIGHT, PT C/O CRAMPING, REPORTS FEELING CONSTIPATED, STATES "THIS USUALLY HAPPENS WHEN I AM CONSTIPATED", ADM PERCOCET AND PROVIDED WARM BLANKET TO ABD, PT STATES "THAT BLANKET FEELS GOOD", PT DENIES FURTHER NEEDS
--- NOTE | 2020-02-02 04:20 | NUR ---
PT AROUSES TO ME IN ROOM, REPORTS "FEELING MUCH BETTER", I&O'S COLLECTED, PT DENIES NEEDS OR PAIN
[2020-02-02 05:00] LABS: BASOPHILS 0.4 % (0-2); HEMATOCRIT 24.7 % (42.0-54.0); HEMOGLOBIN 8.1 g/dL (13.5-17.5); IMMATURE GRANULOCYTES 0.3 % (0-5); LYMPHOCYTES 13.4 % (15-50); MCH 31.5 pg (26.0-34.0); MCHC 32.8 g/dL (31.0-37.0); MCV 96.1 fL (80.0-100.0); MONOCYTES 15.9 % (2-11); PLATELET COUNT 231 10x3/uL (130-400); RBC 2.57 10x6/uL (4.20-6.10); RDW 13.7 % (11.5-14.5); WBC 7.2 10x3/uL (4.8-10.8)
[2020-02-02 05:20] LABS: CALC OSMOLALITY 281 mosm/kg (275-300); CALCIUM 7.6 mg/dL (8.5-10.1); CARBON DIOXIDE 26.3 mmol/L (21.0-32.0); CHLORIDE - SERUM 107 mmol/L (98-107); CREATININE - SERUM 0.7 mg/dL (0.6-1.3); GLUCOSE 98 mg/dL (74-106); MAGNESIUM - SERUM 1.9 mg/dL (1.8-2.4); PHOSPHOROUS 2.5 mg/dL (2.5-4.9); POTASSIUM - SERUM 3.5 mmol/L (3.5-5.1); SODIUM 141 mmol/L (136-145); UREA NITROGEN 16 mg/dL (7-18); eGFR NON AFRICAN AMERICAN > 90 mL/min (90-120)
--- NOTE | 2020-02-02 05:55 | NUR ---
PT AWAKE, ADM VANCOMYCIN IVPB PER MD ORDERS, SEE EMAR, PT REQUESTS TO BE PLACED ON BED WIGGINS AT THIS TIME
--- NOTE | 2020-02-02 06:02 | NUR ---
PHARMACY NOTIFIED FOR PROTONIX ORAL SUSPENSION
--- NOTE | 2020-02-02 06:10 | NUR ---
PT REMOVED FROM BED WIGGINS, HAD SMALL BM, CLEANED UP WITH WET WARM WIPES, PINK PAD WITH WHITE CHUX PLACED, PT DENIES FURTHER NEEDS OR PAIN AT THIS TIME
--- NOTE | 2020-02-02 06:54 | NUR ---
PT RESTING WITH EYES CLOSED, AROUSES TO SOFT VERBAL STIMULATION, ADM CARAFATE AND PROTONIX PER MD ORDERS, SEE EMAR, PT DENIES NEEDS
--- NOTE | 2020-02-02 07:10 | NUR ---
REPORT RECEIVED FROM OFF GOING NURSE AND PATIENT CARE ASSUMED. PT LYING IN BED ON BACK. AWAKE AND ALERT. PT VSS. WILL CONTINUE WITH PLAN OF CARE
--- NOTE | 2020-02-02 12:38 | NUR ---
Nutrition Follow-up: Nursing reports pt with very good PO intake this AM. Diet: Full Liquid Wt: 215# (01/28) Last BM: 02/01 Labs noted: Ca 7.6 Meds noted: Protonix, Colace, Carafate, NS @ 75, electrolyte protocol -Encourage PO intake and honor food preferences within diet restrictions; rec ADAT as medically feasible. -Monitor wt. -RD following.
--- NOTE | 2020-02-02 15:00 | NUR ---
PT IS STABLE. VSS. MARTINEZ CATHETER REMOVED WITHOUT DIFFICULTY. ENCOURAGE PT TO INCREASE FLUID. WILL CONTINUE TO MONITOR. SR UP. BED IN LOWEST POSITION. CALL LIGHT AT REACH.
--- NOTE | 2020-02-02 15:54 | NUR ---
PAIN COMPLAINS OF ACUTE PAIN TO RT LOWER LEG. NEED TO PROCEED WITH WOUND VAC CHANGE. PERCOCET GIVEN 30 EARLY DUE TO PAIN AND PROCEEDING WITH WOUND VAC CHANGE.
--- NOTE | 2020-02-02 18:59 | NUR ---
PT IS STABLE. VSS. WOUND VAC CHANGED PER SANDRA COLLADO RN. PAIN MED ADMINISTERED BEFORE DRESSING CHANGE. PATIENT APPEARED TO HAVE TO TOLERATED IT WELL. DENIES PAIN. PT ALSO MADE AWARE OF TRANSFER. REQUEST TO SPEAK WITH HIS TO KEEP HER INFORMED. ASSISTED PT IN TALKING TO HIS . PATIENT IN BED. CALL LIGHT AT REACH. BED IN LOWEST POSITION.
--- NOTE | 2020-02-02 19:41 | NUR ---
ORDER RECEIVED FOR TRANSFER TO MED SURG. PATIENT IS STABLE AND VSS. REPORT CALLED TO REMY GLEASON. PATIENT TRANSPORTED VIA HOSPITAL BED ACCOMPANIED BY HOSPITAL STAFF.
[2020-02-03] VITALS: BP 124/61
--- NOTE | 2020-02-03 03:44 | NUR ---
I have reviewed this patient and I concur with the Shift Assessment completed by the Licensed Practical Nurse today this shift.
[2020-02-03 04:00] VITALS: BP 122/71
--- NOTE | 2020-02-03 09:12 | OP ---
PATIENT NAME: REGINO ANDERSON MEDICAL RECORD: [id number] :43 LOCATION:D.[facility] ADMISSION DATE:01/27/20 SURGEON: OZ PRAKASH MD DATE OF OPERATION: 01/28/2020 PREOPERATIVE DIAGNOSIS: Compartment syndrome of the right leg -- likely snake bite. POSTOPERATIVE DIAGNOSIS: Compartment syndrome of the right leg -- likely snake bite. PROCEDURE: Four compartment fasciotomy of the right lower extremity. SURGEON: Oz Prakash MD ANESTHESIA: General. INTRAOPERATIVE COMPLICATIONS: None. SUMMARY OF PATHOLOGIC FINDINGS: What was thought to be a posterior Urbano cyst was a very large blood clot over the area was thought to be fang hawkins. The patient had substantial coagulation and some early necrosis of the posterior calf. All 4 compartments were released and red vessel loops were used for gentle reapproximation and the fasciotomies were left open. OPERATIVE SUMMARY IN DETAIL: After obtaining the appropriate preoperative orthopedic surgery consent as well as anesthetic consultation, evaluation and clearance, the patient was brought to the operating room and placed on the operating table in supine position. After general laryngeal mask airway was administered, the patient's right lower extremity was prepped and draped in routine sterile fashion. Both anterior and lateral incisions were made over the anterolateral compartments. These fascia was immediately released and the muscle underneath was excellent and viable and contractile. Through the same incisions, the posterior deep and posterior superficial compartments were released. Upon dissection and evaluation, the area between the skin and the posterior superficial compartment had approximately 400 mL of coagulated blood which is unique given the patient is on Coumadin and had an INR of 1.6. This was then evacuated in its entirety. The wounds were irrigated and then gently reapproximated with a red vessel loop and harjit and not closed. Sterile dressings were applied. The patient was awakened and taken back to outpatient in stable condition. All final needle and sponge counts were correct. TRANSINT:[id number] Voice Confirmation ID: [id number] DOCUMENT ID: [id number] OZ PRAKASH MD at 0912 CC: [id number] DICTATION DATE: 02/02/20 1049 LEATHER GOODS MAKER: 02/02/203 ADM IN [place] [address] [place] [address]
[2020-02-03 09:18] VITALS: BP 115/64
[2020-02-03 09:54] LABS: BASOPHILS 0.3 % (0-2); EOSINOPHILS 0.9 % (0-7); HEMATOCRIT 28.2 % (42.0-54.0); HEMOGLOBIN 9.1 g/dL (13.5-17.5); IMMATURE GRANULOCYTES 0.7 % (0-5); MCH 31.4 pg (26.0-34.0); MCHC 32.3 g/dL (31.0-37.0); MCV 97.2 fL (80.0-100.0); MEAN PLATELET VOLUME 10.2 fL (7.4-10.4); MONOCYTES 12.3 % (2-11); NEUTROPHILS 75.8 % (40-80); RDW 13.8 % (11.5-14.5)
[2020-02-03 09:55] LABS: PLATELET COUNT 336 10x3/uL (130-400); WBC 9.9 10x3/uL (4.8-10.8)
[2020-02-03 10:04] LABS: ALBUMIN 2.2 g/dL (3.4-5.0); ALKALINE PHOSPHATASE 70 U/L (30-120); ALT (SGPT) 41 U/L (10-68); BILIRUBIN - TOTAL 1.24 mg/dL (0.2-1.3); CALC OSMOLALITY 272 mosm/kg (275-300); CALCIUM 8.3 mg/dL (8.5-10.1); CARBON DIOXIDE 26.2 mmol/L (21.0-32.0); CHLORIDE - SERUM 104 mmol/L (98-107); CREATININE - SERUM 0.9 mg/dL (0.6-1.3); GLUCOSE 118 mg/dL (74-106); POTASSIUM - SERUM 3.3 mmol/L (3.5-5.1); SODIUM 136 mmol/L (136-145); UREA NITROGEN 13 mg/dL (7-18); eGFR NON AFRICAN AMERICAN 87 mL/min (90-120)
[2020-02-03 13:21] VITALS: BP 103/62
[2020-02-03 16:35] VITALS: BP 108/57
--- NOTE | 2020-02-03 19:52 | NUR ---
INCONTINENT OF BOWEL. CHANGED AND REPOSITIONED PATIENT.
[2020-02-03 20:00] VITALS: BP 131/78
[2020-02-04] VITALS: BP 100/50
--- NOTE | 2020-02-04 03:45 | NUR ---
ASSISTED PATIENT TO BED SIDE COMMODE. LARGE SOFT BOWEL MOVEMENT. PATIENT REPORTS RELIEF. IN PROCESS OF RETURNING BACK TO BED, IV WAS PULLED AND NO LONGER PATENT. RESITED TO THE RIGHT FOREARM. 22G.
[2020-02-04 04:00] VITALS: BP 106/55
[2020-02-04 05:58] LABS: BASOPHILS 0.5 % (0-2); EOSINOPHILS 2.1 % (0-7); HEMATOCRIT 25.8 % (42.0-54.0); HEMOGLOBIN 8.3 g/dL (13.5-17.5); IMMATURE GRANULOCYTES 0.5 % (0-5); LYMPHOCYTES 14.6 % (15-50); MCH 31.3 pg (26.0-34.0); MCHC 32.2 g/dL (31.0-37.0); MCV 97.4 fL (80.0-100.0); MEAN PLATELET VOLUME 9.9 fL (7.4-10.4); MONOCYTES 11.7 % (2-11); NEUTROPHILS 70.6 % (40-80); PLATELET COUNT 308 10x3/uL (130-400); RBC 2.65 10x6/uL (4.20-6.10); RDW 13.9 % (11.5-14.5); WBC 7.6 10x3/uL (4.8-10.8)
[2020-02-04 06:24] LABS: ALBUMIN 1.9 g/dL (3.4-5.0); ALKALINE PHOSPHATASE 57 U/L (30-120); ALT (SGPT) 33 U/L (10-68); BILIRUBIN - TOTAL 0.99 mg/dL (0.2-1.3); CALC OSMOLALITY 279 mosm/kg (275-300); CARBON DIOXIDE 29.1 mmol/L (21.0-32.0); CHLORIDE - SERUM 109 mmol/L (98-107); CREATININE - SERUM 0.9 mg/dL (0.6-1.3); GLUCOSE 104 mg/dL (74-106); POTASSIUM - SERUM 3.2 mmol/L (3.5-5.1); PROTEIN - SERUM 5.3 g/dL (6.4-8.2); SODIUM 141 mmol/L (136-145); UREA NITROGEN 10 mg/dL (7-18); eGFR NON AFRICAN AMERICAN 87 mL/min (90-120)
--- NOTE | 2020-02-04 07:23 | NUR ---
PATIENT RESTING QUIETLY IN BED WITH EYES CLOSED. RESPIRATIONS EVEN NON LABORED. NO SIGNS OF DISTRESS NOTED. RATTLESNAKE BITE TO RIGHT LOWER EX. WOUND VAC ON 125. FENTANYL PATCH ON LEFT SHOULDER. RIGHT FOREARM 22G NORMAL SALINE AT 75. ELECTROLYE PROTOCOL. 1X ASSIST WITH WALKER. DENIES FURTHER NEEDS. SIDE RAILS UP X4. CALL LIGHT IN REACH. WILL CONTINUE TO MONITOR FOR SAFETY.
[2020-02-04 09:38] VITALS: BP 122/60
[2020-02-04 12:59] VITALS: BP 104/62
--- NOTE | 2020-02-04 15:26 | NUR ---
PATIENT ALERT AND ORIENTED. FAMILY AT BEDSIDE. RESPIRATIONS EVEN NON LABORED. NO SIGNS OF DISTRESS NOTED. WOUND VAC STILL CLEAN DRY INTACT. SITTING UP WATCHING TV. DENIES FURTHER NEEDS. SIDE RAILS UP X3. CALL LIGHT IN REACH. WILL CONTINUE TO MONITOR FOR SAFETY.
[2020-02-04 15:50] VITALS: BP 107/61
--- NOTE | 2020-02-04 16:17 | NUR ---
HEELS WERE SOFT. FOAM PADS PLACED ON HEELS. TRAPEZE BAR PLACED. ALERT AND ORIENTED. FAMILY AT BEDSIDE. DENIES FURTHER NEEDS. SIDE RAILS UP X3. CALL LIGHT IN REACH. WILL CONTINUE TO MONITOR FOR SAFETY.
--- NOTE | 2020-02-04 17:37 | NUR ---
I have reviewed this patient and I concur with the Shift Assessment completed by the Licensed Practical Nurse today this shift.
--- NOTE | 2020-02-04 19:10 | NUR ---
PATIENT ALERT AND ORIENTED RESTING QUIETLY IN BED WITH EYES CLOSED. RESPIRATIONS EVEN NON LABORED. NO SIGNS OF DISTRESS NOTED. DENIES FURTHER NEEDS. SIDE RAILS UP X4. CALL LIGHT IN REACH. WILL CONTINUE TO MONITOR FOR SAFETY.
--- NOTE | 2020-02-04 19:30 | NUR ---
LYING IN BED TALKING ON THE PHONE. RATES PAIN IN RLE 3. WOUND VAC NOTED TO RLE. RLE IS SWOLLEN AND RED. BILAT HEEL PROTECTORS IN USE. RLE ELEVATED ON PILLOWS. SCDS IN USE. NS @ 75 ML/HR INFUSING IN RT FOREARM. USES URINAL. BANDAID NOTED TO LT FOREARM. ENCOURAGED USE OF I.S. VERBALIZED CONCERN THAT HE MAY END UP HAVING HIS FOOT AMPUTATED. SR ELEVATED X2. CL IN REACH. ALERT AND ORIENTED X4. BED ALARM ON FOR PT SAFETY.
[2020-02-04 20:00] VITALS: BP 106/56
--- NOTE | 2020-02-04 21:00 | NUR ---
MEDICATED WITH PERCOCET FOR C/O PAIN IN RLE. CL IN REACH.
--- NOTE | 2020-02-04 21:45 | NUR ---
REQUESTS MED FOR ANXIETY. NOTFIED TEX GALVEZ. INSTRUCTED TO GIVE PRN BENADRYL THAT IS ORDERED.
[2020-02-05] VITALS: BP 121/69
[2020-02-05 04:00] VITALS: BP 96/42
[2020-02-05 05:40] LABS: BASOPHILS 0.4 % (0-2); EOSINOPHILS 1.2 % (0-7); HEMATOCRIT 25.8 % (42.0-54.0); HEMOGLOBIN 8.2 g/dL (13.5-17.5); IMMATURE GRANULOCYTES 0.6 % (0-5); LYMPHOCYTES 10.7 % (15-50); MCH 31.1 pg (26.0-34.0); MCHC 31.8 g/dL (31.0-37.0); MCV 97.7 fL (80.0-100.0); NEUTROPHILS 76.1 % (40-80); PLATELET COUNT 327 10x3/uL (130-400); RBC 2.64 10x6/uL (4.20-6.10); RDW 14.1 % (11.5-14.5); WBC 8.1 10x3/uL (4.8-10.8)
[2020-02-05 06:04] LABS: ALBUMIN 1.8 g/dL (3.4-5.0); ANION GAP 8.1 mmol/L (8-16); BILIRUBIN - TOTAL 0.91 mg/dL (0.2-1.3); CALCIUM 8.1 mg/dL (8.5-10.1); CARBON DIOXIDE 27.5 mmol/L (21.0-32.0); POTASSIUM - SERUM 3.6 mmol/L (3.5-5.1); PROTEIN - SERUM 5.1 g/dL (6.4-8.2)
[2020-02-05 06:06] LABS: CREATININE - SERUM 1.4 mg/dL (0.6-1.3)
--- NOTE | 2020-02-05 06:35 | NUR ---
C/O NAUSEA. MEDICATED WITH ZOFRAN PO
[2020-02-05 08:00] VITALS: BP 126/66
--- NOTE | 2020-02-05 10:24 | OP ---
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 PROCEDURE: Repeat evacuation of hematoma with application of 2 wound VACs medially and laterally. SURGEON: Oz Prakash MD ANESTHESIA: General. INTRAOPERATIVE COMPLICATIONS: FINDINGS: The patient's distal pulses were difficult and required ultrasound visualization of the dorsalis pedis and posterior tibialis. Intraoperative consultation was done with Dr. Okeefe of cardiovascular surgery who agreed that the pulses were present. INDICATIONS: This patient had previous fasciotomies 24 hours prior and unfortunately had recurrence of his hematoma in his posterior calf, resulting in a repeat increase in his compartment pressures. He was brought urgently to the operating room for evacuation of hematoma, and then rather than leave this open, I decided to put a wound VAC to help decrease the pressure in the compartments. Intraoperative consultation did show again good pulses and Dr. Okeefe remains on the case. It is of note that the patient was injured on Wednesday and was operated on Wednesday; therefore, in referral with poison control, we thought that [facility] would not be reasonable at this point. OPERATIVE SUMMARY IN DETAIL: After obtaining the appropriate preoperative orthopedic surgery consent as well as anesthetic consultation, evaluation and clearance, the patient was brought from his hospital bed to the operating room urgently. Upon his prep, substantial amounts of blood did drain. After the patient was prepped and draped in routine sterile fashion, the appropriate timeout was taken and agreed upon by all given the patient's unique identifiers. Approximately 400 mL of hematoma were evacuated from the posterior aspect of the leg as well as some components of the medial aspect. Again, resulting in excellent decompression. At this point, after copious irrigation of the wounds, bilateral wound VACs were placed on both the medial and lateral fasciotomies. They were connected with a Y connector to a single wound VAC canister set at 125 degrees of negative pressure continuous on medium intensity. The patient tolerated the procedure well, and at this point, was transferred to the intensive care unit with referrals as listed above in play. Final needle and sponge counts were correct. TRANSINT:[id number] Voice Confirmation ID: [id number] DOCUMENT ID: [id number] OPERATIVE REPORT [id number] REGINO ANDERSON MD, OZ DUPONT at 1024 CC: [id number] DICTATION DATE: 02/02/20 1053 BIOMEDICAL ENGINEERING PROFESSOR: 02/02/202053 ADM IN [facility] [address] [id number]
[2020-02-05 11:00] VITALS: BP 107/56
--- NOTE | 2020-02-05 11:06 | NUR ---
PERMISSION GIVEN TO HUSEYIN TO SPEAK ABOUT PT. GAVE HER THE SECURITY CODE. QUESTIONS ANSWERED. ANSWERED QUESTIONS ABOUT VS WHICH WERE WNL. TOLD TO SPEAK WITH CASE MANAGEMENT ABOUT REHAB. CL IN REACH. BED ALARM ON. WCTM
--- NOTE | 2020-02-05 12:09 | NUR ---
PT IN BED. BACK IN ROOM. NO NEEDS AT THIS TIME. WCTM
--- NOTE | 2020-02-05 14:04 | MORECARE ---
CASE MANAGEMENT DISCHARGE SUMMARY PATIENT: REGINO ANDERSON UNIT: [id number] ADM DATE: 01/27/20 AGE: 74 : 43 SEX: M ROOM/BED: D.2207 AUTHOR: VAUGHN,DOC PHYSICIAN: REFERRING PHYSICIAN: IZAIAH RUCKER DO DATE OF SERVICE: 02/05/20 Discharge Plan Patient Name: REGINO ANDERSON Facility: [facility]:[place] : 1945 Planned Disposition: Home Health Service Anticipated Discharge Date: Discharge Date: Expected LOS: Initial Reviewer: [email or web address] Initial Review Date: 02/01/2020 Generated: 02/05/20 3:03 pm Comments DCP- Discharge Planning Updated by [id number]: Bridgette Parrish on 02/05/20 1:[address] CM SPOKE WITH PATIENT AND ABOUT PLAN OF CARE. THEY WOULD LIKE TO GO TO [facility], REFERRAL SENT HETAL SIGNED AND PLACED IN CHART. [facility] IS THEIR SECOND CHOICE. IMM SERVED AND EXPLAINED. CM WILL CONTINUE TO FOLLOW AND ASSIST NEEDED DCP- Discharge Planning Updated by [email or web address]: María Yu on 02/01/20 2:[address] CM RECEIVED A TELEPHONE CALL FROM LUDWIG, THE CHARGE NURSE. THE PATIENT';S WANTED TO SPEAK WITH THE ABSEILING INSTRUCTOR AND I MET HER IN THE ICU WAITING ROOM. THE PATIENT'S HAD COPIES OF THE PATIENT'S LIVING WILL AND HER POWER OF CABLE TELEVISION ACCESS COORDINATOR TO BE PLACED IN THE CHART. SHE WANTED TO MAKE SURE THAT HER DOES NOT SIGN ANYTHING SHE FEELS HE IS NOT MENTALLY CAPABLE TO MAKE DECISIONS AT THIS TIME. SHE STATES THEY LIVE IN [place] AND WERE VERY ACTIVE MID 69YEAR OLDS PRIOR TO THIS ADMISSION. SHE IS HARD OF HEARING. SHE HAS A CELL PHONE AND A HEARING IMPAIRED TEXT PHONE FOR COMMUNICATION. ELA CONFIMRED THE CONTACT PHONE NUMBERS [phone] TEXT PHONE [phone] CELL PHONE. PCP- [facility] [place]- WALKER AND A CPAP. THE CPAP HE OBTAINED A NUMBER OF YEARS AGO. THE PATIENT DOES NOT USE IT OFTEN. DISCUSSED NEEDS AT DISCHARGE. SHE WOULD LIKE TO HAVE HOME HEALTH AT THIS TIME. SHE WOULD LIKE A UPDATE. CM SPOKE W/ THE CHARGE NURSE AND PRIMARY NURSE. PLACED THE LIVING WILL AND POA ON THE FRONT OF THE PATIENT'S CHART. CM CONFIRMED THE 'S CONTACT PHONE NUMBERS W/ THE CHARGE NURSE. ILIANA, THE PRIMARY NURSE. SPOKE W/ THE IN THE WAITING ROOM. THE WOULD ALSO LIKE TO SPEAK WITH THE MD. CM ADVISED THE NURSES HE HAD NOT ROUNDED YET. CM TO FOLLOW TO ASSIST IS APPROPRIATE. DCPIA - Discharge Planning Initial Assessment Updated by [id number]: María Yu on 02/01/20 2:52 pm * Is the patient Alert and Oriented? No * How many steps to enter\exit or inside your home? NONE * [facility] [place] [facility] * Pharmacy [facility] IN [place] * Preadmission Environment Home with Family * ADLs Independent * Equipment Walker * Other Equipment DENIES ANY ADDITIONAL DME * List name and contact numbers for known caregivers / representatives who currently or will assist patient after discharge: HUSEYIN ANDERSON- - [phone] THE IS HARD OF HEARING SHE HAS A TEXT ONLY PHONE FOR HEARING IMPAIRED [phone] * Verbal permission to speak to the caregivers and representatives has been obtained from the patient. Yes * Community resources currently utilized None * Please name any agencies selected above. N/A * Additional services required to return to the preadmission environment? Yes * Can the patient safely return to the preadmission environment? Yes * Has this patient been hospitalized within the prior 30 days at any hospital? No External Providers External Provider: [facility] Next Contact Date: Service Request Date: Service Type: Resolution: Reviewer: Comments: Coverage Notice Reviewer: [id number] Nila Parrish Notice Issued Date-Time: 02/05/2020 11:00 Notice Type: Patient Choice Letter Notice Delivered To: Patient Relationship to Patient: Spouse Assistant Store Director Name: HUSEYIN Delivery Method: HAND - Hand Delivered Nuha Days: Prior Verbal Notification: Recipient Understood Notice: Yes Recipient Signature: Yes Med Rec Note Co-signed by Attending: Coverage Notice Comment: HETAL WITH [facility] AT [facility] AND [facility] Reviewer: [id number] Nila Parrish Notice Issued Date-Time: 02/05/2020 11:00 Notice Type: IM Discharge Notice Notice Delivered To: Patient Relationship to Patient: Spouse Assistant Store Director Name: HUSEYIN Delivery Method: HAND - Hand Delivered Nuha Days: Prior Verbal Notification: Recipient Understood Notice: Yes Recipient Signature: Yes Med Rec Note Co-signed by Attending: Coverage Notice Comment: IMM SERVED AND EXPLAINED Last DP export: 02/01/20 2:25 p Patient Name: REGINO ANDERSON Page [phone] at 1404 All edits/amendments must be made on the electronic document DICTATION DATE: 02/05/201402 CHILD PROTECTIVE INVESTIGATOR: NETTA 02/05/201402 RPT#: [id number] DC DATE: STATUS: ADM IN [facility] [address] [place] [address] END OF REPORT
[2020-02-05 15:00] VITALS: BP 112/68
--- NOTE | 2020-02-05 16:00 | NUR ---
WOUND VAC CHANGED VIA Telma KIRK RN AND MYSELF. SKIN IS BEEFY RED. SM AMOUNT OF DRAINAGE UPON CHANGING DRESSING. TOLERATED WELL. CL IN REACH. WCTM
[2020-02-05 20:00] VITALS: BP 107/54
[2020-02-06] VITALS: BP 129/72
--- NOTE | 2020-02-06 02:57 | NUR ---
REC'D CHGE OF SHIFT WALKING ROUNDS IN BED HEEL PROTECTORS INTACT HEELS BILAT.GRSG WITH WD. VAC RLE FOOT PINK AND WARM PEDAL PULSE PRESENT ELEVATED ON PILLOW SCD TO LLE.WILL CONTINUE TO MONITOR FOR ANY CHGE IN NEUROVASCULAR STATUS AND FOLLOW CURRENT PLAN OF CARE
[2020-02-06 04:00] VITALS: BP 123/66
--- NOTE | 2020-02-06 05:25 | NUR ---
I have reviewed this patient and I concur with the Shift Assessment completed by the Licensed Practical Nurse today this shift.
[2020-02-06 05:44] LABS: BASOPHILS 0.5 % (0-2); EOSINOPHILS 1.8 % (0-7); HEMATOCRIT 26.4 % (42.0-54.0); HEMOGLOBIN 8.3 g/dL (13.5-17.5); IMMATURE GRANULOCYTES 0.5 % (0-5); LYMPHOCYTES 15.1 % (15-50); MCH 30.9 pg (26.0-34.0); MCHC 31.4 g/dL (31.0-37.0); MCV 98.1 fL (80.0-100.0); MEAN PLATELET VOLUME 9.6 fL (7.4-10.4); MONOCYTES 11.4 % (2-11); NEUTROPHILS 70.7 % (40-80); PLATELET COUNT 321 10x3/uL (130-400); RBC 2.69 10x6/uL (4.20-6.10); RDW 14.4 % (11.5-14.5); WBC 6.6 10x3/uL (4.8-10.8)
[2020-02-06 06:31] LABS: ANION GAP 9.4 mmol/L (8-16); BILIRUBIN - TOTAL 0.81 mg/dL (0.2-1.3); CALCIUM 8.5 mg/dL (8.5-10.1); CREATININE - SERUM 1.8 mg/dL (0.6-1.3); POTASSIUM - SERUM 3.4 mmol/L (3.5-5.1); PROTEIN - SERUM 5.7 g/dL (6.4-8.2)
--- NOTE | 2020-02-06 08:40 | NUR ---
LEFT LEG WITH WOULND VAC PATENT DRAINING BROWN DRAINAGE. PULSES PALPATED TO POSTERIOR TIBIAL AND DORSALIS PEDIS. QUESTIONS ASKED ABOUT FOOT DROOP. FOOT BOOTIES IN PLACE BILATERAL WITH SCD TO LEFT LOWER LEG.
[2020-02-06 09:15] VITALS: BP 140/69
--- NOTE | 2020-02-06 09:48 | NUR ---
Rehab Note- Acute Inpatient Rehab prescreen order received. THe patient is a good inpatient rehab candidate. Will follow at this time and accept when medically stable and if in agreeance with [facility] Acute Inpatient Rehab. Thank you for this referral! Helene Shields RN Clinical Liaison, [facility] Rehab
[2020-02-06 13:03] VITALS: BP 142/73
[2020-02-06 16:55] VITALS: BP 123/87
--- NOTE | 2020-02-06 18:45 | NUR ---
IV INFILTRATED TO LEFT FA. ATTEMPTED X 2. UNSUCCESSFUL.
[2020-02-06 20:00] VITALS: BP 141/80
--- NOTE | 2020-02-07 01:39 | NUR ---
I have reviewed this patient and I concur with the Shift Assessment completed by the Licensed Practical Nurse today this shift.
[2020-02-07 04:00] VITALS: BP 103/60
[2020-02-07 05:00] LABS: BASOPHILS 0.3 % (0-2); EOSINOPHILS 1.8 % (0-7); HEMATOCRIT 25.6 % (42.0-54.0); HEMOGLOBIN 8.4 g/dL (13.5-17.5); IMMATURE GRANULOCYTES 0.7 % (0-5); LYMPHOCYTES 14.9 % (15-50); MCH 32.2 pg (26.0-34.0); MCHC 32.8 g/dL (31.0-37.0); MCV 98.1 fL (80.0-100.0); MEAN PLATELET VOLUME 9.9 fL (7.4-10.4); MONOCYTES 12.7 % (2-11); NEUTROPHILS 69.6 % (40-80); PLATELET COUNT 328 10x3/uL (130-400); RBC 2.61 10x6/uL (4.20-6.10); RDW 14.2 % (11.5-14.5); WBC 6.8 10x3/uL (4.8-10.8)
[2020-02-07 06:15] LABS: ANION GAP 9.2 mmol/L (8-16); BILIRUBIN - TOTAL 0.73 mg/dL (0.2-1.3); CALCIUM 8.3 mg/dL (8.5-10.1); CARBON DIOXIDE 26.3 mmol/L (21.0-32.0); CREATININE - SERUM 1.7 mg/dL (0.6-1.3); POTASSIUM - SERUM 3.5 mmol/L (3.5-5.1); PROTEIN - SERUM 5.5 g/dL (6.4-8.2)
[2020-02-07 08:45] VITALS: BP 131/80
[2020-02-07 13:21] VITALS: BP 146/89
--- NOTE | 2020-02-07 13:54 | MORECARE ---
CASE MANAGEMENT DISCHARGE SUMMARY PATIENT: REGINO ANDERSON UNIT: [id number] ADM DATE: 01/27/20 AGE: 74 : 44 SEX: M ROOM/BED: D.2207 AUTHOR: VAUGHN,DOC PHYSICIAN: REFERRING PHYSICIAN: IZAIAH RUCKER DO DATE OF SERVICE: 02/07/20 Discharge Plan Patient Name: REGINO ANDERSON Facility: [facility]:[place] : 1945 Planned Disposition: Home Health Service Anticipated Discharge Date: Discharge Date: Expected LOS: Initial Reviewer: [id number] Initial Review Date: 02/01/2020 Generated: 02/07/20 2:53 pm Comments DCP- Discharge Planning Updated by [email or web address]: Bridgette Parrish on 02/07/20 12:[address] I CALLED [facility] TO SEE WHAT THEIR BED STATUS IS SHE IS FULL TILL NEXT WEEK AT THE [facility]. [facility] IS STILL THE PATIENT'S FIRST CHOICE CM IS IN CONTACT WITH LAT MULTIPLE TIMES A DAY CHECKING ON THEIR BED STATUS DCP- Discharge Planning Updated by [email or web address]: Bridgette Parrish on 02/05/20 1:[address] CM SPOKE WITH PATIENT AND ABOUT PLAN OF CARE. THEY WOULD LIKE TO GO TO [facility], REFERRAL SENT HETAL SIGNED AND PLACED IN CHART. [facility] IS THEIR SECOND CHOICE. IMM SERVED AND EXPLAINED. CM WILL CONTINUE TO FOLLOW AND ASSIST NEEDED DCP- Discharge Planning Updated by [id number]: María Yu on 02/01/20 2:[address] CM RECEIVED A TELEPHONE CALL FROM LUDWIG, THE CHARGE NURSE. THE PATIENT';S WANTED TO SPEAK WITH THE AGRICULTURE INTERN AND I MET HER IN THE ICU WAITING ROOM. THE PATIENT'S HAD COPIES OF THE PATIENT'S LIVING WILL AND HER POWER OF RAILWAY HEAD TENDER TO BE PLACED IN THE CHART. SHE WANTED TO MAKE SURE THAT HER DOES NOT SIGN ANYTHING SHE FEELS HE IS NOT MENTALLY CAPABLE TO MAKE DECISIONS AT THIS TIME. SHE STATES THEY LIVE IN [place] AND WERE VERY ACTIVE MID 69YEAR OLDS PRIOR TO THIS ADMISSION. SHE IS HARD OF HEARING. SHE HAS A CELL PHONE AND A HEARING IMPAIRED TEXT PHONE FOR COMMUNICATION. CM CONFIMRED THE CONTACT PHONE NUMBERS [phone] TEXT PHONE [phone] CELL PHONE. [facility]- [facility] [place]- WALKER AND A CPAP. THE CPAP HE OBTAINED A NUMBER OF YEARS AGO. THE PATIENT DOES NOT USE IT OFTEN. DISCUSSED NEEDS AT DISCHARGE. SHE WOULD LIKE TO HAVE HOME HEALTH AT THIS TIME. SHE WOULD LIKE A UPDATE. CM SPOKE W/ THE CHARGE NURSE AND PRIMARY NURSE. PLACED THE LIVING WILL AND POA ON THE FRONT OF THE PATIENT'S CHART. CM CONFIRMED THE 'S CONTACT PHONE NUMBERS W/ THE CHARGE NURSE. ILIANA, THE PRIMARY NURSE. SPOKE W/ THE IN THE WAITING ROOM. THE WOULD ALSO LIKE TO SPEAK WITH THE MD. CM ADVISED THE NURSES HE HAD NOT ROUNDED YET. CM TO FOLLOW TO ASSIST IS APPROPRIATE. DCPIA - Discharge Planning Initial Assessment Updated by [id number]: María Yu on 02/01/20 2:52 pm * Is the patient Alert and Oriented? No * How many steps to enter\exit or inside your home? NONE * PCP [place] [facility] IN [facility] [address] [facility] * Pharmacy [facility] IN [facility] * Preadmission Environment Home with Family * ADLs Independent * Equipment Walker * Other Equipment DENIES ANY ADDITIONAL DME * List name and contact numbers for known caregivers / representatives who currently or will assist patient after discharge: HUSEYIN ANDERSON- - [phone] THE IS HARD OF HEARING SHE HAS A TEXT ONLY PHONE FOR HEARING IMPAIRED [phone] * Verbal permission to speak to the caregivers and representatives has been obtained from the patient. Yes * Community resources currently utilized None * Please name any agencies selected above. N/A * Additional services required to return to the preadmission environment? Yes * Can the patient safely return to the preadmission environment? Yes * Has this patient been hospitalized within the prior 30 days at any hospital? No Coverage Notice Reviewer: [id number] Parrish Notice Issued Date-Time: 02/05/2020 11:00 Notice Type: Patient Choice Letter Notice Delivered To: Patient Relationship to Patient: Spouse Skating Rink Manager Name: HUSEYIN Delivery Method: HAND - Hand Delivered Nuha Days: Prior Verbal Notification: Recipient Understood Notice: Yes Recipient Signature: Yes Med Rec Note Co-signed by Attending: Coverage Notice Comment: HETAL WITH [facility] AT [facility] AND [facility] Reviewer: [id number] Parrish Notice Issued Date-Time: 02/05/2020 11:00 Notice Type: IM Discharge Notice Notice Delivered To: Patient Relationship to Patient: Spouse Skating Rink Manager Name: HUSEYIN Delivery Method: HAND - Hand Delivered Nuha Days: Prior Verbal Notification: Recipient Understood Notice: Yes Recipient Signature: Yes Med Rec Note Co-signed by Attending: Coverage Notice Comment: IMM SERVED AND EXPLAINED Last DP export: 02/05/20 1:04 p Patient Name: REIGNO ANDERSON Page [phone] at 1354 All edits/amendments must be made on the electronic document DICTATION DATE: 02/07/20 1353 SIGN MANUFACTURER: NETTA 02/07/20 1353 RPT#: [id number] DC DATE: STATUS: ADM IN [facility] [address] [place] [address] END OF REPORT
[2020-02-07 16:33] VITALS: BP 114/70
[2020-02-07 20:00] VITALS: BP 124/72
[2020-02-08] VITALS: BP 140/96
[2020-02-08 04:00] VITALS: BP 93/69
--- NOTE | 2020-02-08 04:45 | NUR ---
I have reviewed this patient and I concur with the Shift Assessment completed by the Licensed Practical Nurse today this shift.
[2020-02-08 07:50] LABS: BASOPHILS 0.4 % (0-2); EOSINOPHILS 1.3 % (0-7); HEMATOCRIT 27.1 % (42.0-54.0); HEMOGLOBIN 8.7 g/dL (13.5-17.5); IMMATURE GRANULOCYTES 0.3 % (0-5); LYMPHOCYTES 12.1 % (15-50); MCH 31.1 pg (26.0-34.0); MCHC 32.1 g/dL (31.0-37.0); MCV 96.8 fL (80.0-100.0); MEAN PLATELET VOLUME 9.6 fL (7.4-10.4); NEUTROPHILS 73.9 % (40-80); PLATELET COUNT 340 10x3/uL (130-400); RDW 14.1 % (11.5-14.5); WBC 7.9 10x3/uL (4.8-10.8)
[2020-02-08 08:15] LABS: ALBUMIN 2.1 g/dL (3.4-5.0); ANION GAP 10.2 mmol/L (8-16); BILIRUBIN - TOTAL 0.67 mg/dL (0.2-1.3); CALCIUM 8.2 mg/dL (8.5-10.1); CARBON DIOXIDE 25.5 mmol/L (21.0-32.0); CREATININE - SERUM 1.6 mg/dL (0.6-1.3); POTASSIUM - SERUM 3.7 mmol/L (3.5-5.1); PROTEIN - SERUM 5.2 g/dL (6.4-8.2); VANCOMYCIN - RANDOM 13.6 ug/mL (10.0-20.0)
--- NOTE | 2020-02-08 08:55 | NUR ---
HE HAS A WOUND VAC ON HIS RIGHT LOWER CALF. SCD ON THE LEFT LEG ONLY. HE IS ALERT, TALKING.
[2020-02-08 10:59] VITALS: BP 147/86
[2020-02-08 13:16] VITALS: BP 121/63
[2020-02-08 16:51] LABS: BILIRUBIN NEGATIVE (NEGATIVE); GLUCOSE NEGATIVE (NEGATIVE); KETONE NEGATIVE (NEGATIVE); NITRITE NEGATIVE (NEGATIVE); UROBILINOGEN NORMAL (NORMAL)
[2020-02-08 18:02] VITALS: BP 95/65
--- NOTE | 2020-02-08 18:21 | NUR ---
OT NOTE: PT COMPLETED SUPINE TO SIT AT EOB WITH MIN A. PT COMPLETED SIT TO STAND WITH MIN A. PT COMPLETED ADL MOB WITH RW WITH CGA. PT COMPLETED TOILETING TASKS WITH MIN A. [id number] THANK YOU,JESUS MANUEL GR
--- NOTE | 2020-02-08 19:00 | NUR ---
ASSUMED CARE OF PATIENT, PATIENT RESTING QUIETLY WATCHING TV, NO DISTRESS NOTED, WOUND VAC TO RIGHT LOWER EXTREMITY INTACT, PATIENT DENIES NEEDS AT THIS TIME, IV INFUSING WITHOUT COMPLICATION, PATIENT USES URINAL, WILL CONTINUE TO MONITOR PATIENT, CALL LIGHT WITHIN REACH
[2020-02-08 20:00] VITALS: BP 113/68
[2020-02-09] VITALS: BP 133/80
[2020-02-09 04:00] VITALS: BP 133/56
[2020-02-09 05:40] LABS: ANION GAP 10.1 mmol/L (8-16); CALCIUM 8.4 mg/dL (8.5-10.1); CARBON DIOXIDE 24.4 mmol/L (21.0-32.0); CREATININE - SERUM 1.9 mg/dL (0.6-1.3); POTASSIUM - SERUM 3.5 mmol/L (3.5-5.1)
[2020-02-09 06:06] LABS: BASOPHILS 0.8 % (0-2); EOSINOPHILS 1.5 % (0-7); HEMATOCRIT 28.4 % (42.0-54.0); HEMOGLOBIN 8.9 g/dL (13.5-17.5); IMMATURE GRANULOCYTES 0.4 % (0-5); LYMPHOCYTES 14.8 % (15-50); MCH 31.3 pg (26.0-34.0); MCHC 31.3 g/dL (31.0-37.0); MEAN PLATELET VOLUME 10.2 fL (7.4-10.4); MONOCYTES 12.1 % (2-11); NEUTROPHILS 70.4 % (40-80); PLATELET COUNT 334 10x3/uL (130-400); RBC 2.84 10x6/uL (4.20-6.10); RDW 14.4 % (11.5-14.5); WBC 7.8 10x3/uL (4.8-10.8)
--- NOTE | 2020-02-09 07:31 | NUR ---
ALERT AND ORIENTED X4. WOUND VAC INTACT TO RLE. WITH PEDAL PULSES NOTED. DENIES ANY PAIN OR DISCOMFORT AT THIS TIME. IV TO RT. F/A W/O ANY S/S OF INFECTION/INFILTRATION.
--- NOTE | 2020-02-09 08:00 | MORECARE ---
CASE MANAGEMENT DISCHARGE SUMMARY PATIENT: REGINO ANDERSON UNIT: [id number] ADM DATE: 01/27/20 AGE: 74 : 44 SEX: M ROOM/BED: D.2207 AUTHOR: VAUGHN,DOC PHYSICIAN: REFERRING PHYSICIAN: IZAIAH RUCKER DO DATE OF SERVICE: 02/09/20 Discharge Plan Patient Name: REGINO ANDERSON Facility: [facility]:[place] : 1945 Planned Disposition: Home Health Service Anticipated Discharge Date: Discharge Date: Expected LOS: Initial Reviewer: [email or web address] Initial Review Date: 02/01/2020 Generated: 02/09/20 9:00 am Comments DCP- Discharge Planning Updated by [id number]: Bridgette Parrish on 02/07/20 12:[address] I CALLED [facility] TO SEE WHAT THEIR BED STATUS IS SHE IS FULL TILL NEXT WEEK AT THE [facility]. [facility] IS STILL THE PATIENT'S FIRST CHOICE CM IS IN CONTACT WITH LAT MULTIPLE TIMES A DAY CHECKING ON THEIR BED STATUS DCP- Discharge Planning Updated by [id number]: Bridgette Parrish on 02/05/20 1:[address] CM SPOKE WITH PATIENT AND ABOUT PLAN OF CARE. THEY WOULD LIKE TO GO TO [facility], REFERRAL SENT [facility]ETAL SIGNED AND PLACED IN CHART. [facility] IS THEIR SECOND CHOICE. IMM SERVED AND EXPLAINED. CM WILL CONTINUE TO FOLLOW AND ASSIST NEEDED DCP- Discharge Planning Updated by [email or web address]: María Yu on 02/01/20 2:[address] CM RECEIVED A TELEPHONE CALL FROM LUDWIG, THE CHARGE NURSE. THE PATIENT';S WANTED TO SPEAK WITH THE ICE GUARD INSPECTOR AND I MET HER IN THE ICU WAITING ROOM. THE PATIENT'S HAD COPIES OF THE PATIENT'S LIVING WILL AND HER POWER OF RAZOR SHARPENER TO BE PLACED IN THE CHART. SHE WANTED TO MAKE SURE THAT HER DOES NOT SIGN ANYTHING SHE FEELS HE IS NOT MENTALLY CAPABLE TO MAKE DECISIONS AT THIS TIME. SHE STATES THEY LIVE IN [place] AND WERE VERY ACTIVE MID 69YEAR OLDS PRIOR TO THIS ADMISSION. SHE IS HARD OF HEARING. SHE HAS A CELL PHONE AND A HEARING IMPAIRED TEXT PHONE FOR COMMUNICATION. CM CONFIMRED THE CONTACT PHONE NUMBERS [phone] TEXT PHONE [phone] CELL PHONE. [facility] [place] [facility] D[facility]- WALKER AND A CPAP. THE CPAP HE OBTAINED A NUMBER OF YEARS AGO. THE PATIENT DOES NOT USE IT OFTEN. DISCUSSED NEEDS AT DISCHARGE. SHE WOULD LIKE TO HAVE HOME HEALTH AT THIS TIME. SHE WOULD LIKE A UPDATE. CM SPOKE W/ THE CHARGE NURSE AND PRIMARY NURSE. PLACED THE LIVING WILL AND POA ON THE FRONT OF THE PATIENT'S CHART. CM CONFIRMED THE 'S CONTACT PHONE NUMBERS W/ THE CHARGE NURSE. ILIANA, THE PRIMARY NURSE. SPOKE W/ THE IN THE WAITING ROOM. THE WOULD ALSO LIKE TO SPEAK WITH THE MD. CM ADVISED THE NURSES HE HAD NOT ROUNDED YET. CM TO FOLLOW TO ASSIST IS APPROPRIATE. DCPIA - Discharge Planning Initial Assessment Updated by [id number]: María Yu on 02/01/20 2:52 pm * Is the patient Alert and Oriented? No * How many steps to enter\exit or inside your home? NONE * PCP [place] DR [facility] IN [facility] * [facility] * Preadmission Environment Home with Family * ADLs Independent * Equipment Walker * Other Equipment DENIES ANY ADDITIONAL DME * List name and contact numbers for known caregivers / representatives who currently or will assist patient after discharge: HUSEYIN ANDERSON- - [phone] THE IS HARD OF HEARING SHE HAS A TEXT ONLY PHONE FOR HEARING IMPAIRED [phone] * Verbal permission to speak to the caregivers and representatives has been obtained from the patient. Yes * Community resources currently utilized None * Please name any agencies selected above. N/A * Additional services required to return to the preadmission environment? Yes * Can the patient safely return to the preadmission environment? Yes * Has this patient been hospitalized within the prior 30 days at any hospital? No External Providers External Provider: [facility] Next Contact Date: Service Request Date: Service Type: Resolution: Reviewer: Comments: Coverage Notice Reviewer: [id number] - Bridgette Parrish Notice Issued Date-Time: 02/05/2020 11:00 Notice Type: Patient Choice Letter Notice Delivered To: Patient Relationship to Patient: Spouse Obstetrics Gynecology Physician Name: HUSEYIN Delivery Method: HAND - Hand Delivered Nuha Days: Prior Verbal Notification: Recipient Understood Notice: Yes Recipient Signature: Yes Med Rec Note Co-signed by Attending: Coverage Notice Comment: HETAL WITH [facility] AT [facility] AND [facility] Reviewer: [id number] - Bridgette Parrish Notice Issued Date-Time: 02/05/2020 11:00 Notice Type: IM Discharge Notice Notice Delivered To: Patient Relationship to Patient: Spouse Obstetrics Gynecology Physician Name: HUSEYIN Delivery Method: HAND - Hand Delivered Nuha Days: Prior Verbal Notification: Recipient Understood Notice: Yes Recipient Signature: Yes Med Rec Note Co-signed by Attending: Coverage Notice Comment: IMM SERVED AND EXPLAINED Last DP export: 02/07/20 12:54 p Patient Name: REGINO ANDERSON Page [id number] at 0800 All edits/amendments must be made on the electronic document DICTATION DATE: 02/09/20 08 MERCHANDISE CLERK: NETTA 02/09/20 08 RPT#: [id number] DC DATE: STATUS: ADM IN [facility] [address] [place] [address] END OF REPORT
--- NOTE | 2020-02-09 08:08 | MORECARE ---
CASE MANAGEMENT DISCHARGE SUMMARY PATIENT: REGINO ANDERSON UNIT: [id number] ADM DATE: 01/27/20 AGE: 74 : 44 SEX: M ROOM/BED: D.2207 AUTHOR: VAUGHN,DOC PHYSICIAN: REFERRING PHYSICIAN: IZAIAH RUCKER DO DATE OF SERVICE: 02/09/20 Discharge Plan Patient Name: REGINO ANDERSON Facility: [facility]:[place] : 1945 Planned Disposition: Home Health Service Anticipated Discharge Date: Discharge Date: Expected LOS: Initial Reviewer: [id number] Initial Review Date: 02/01/2020 Generated: 02/09/20 9:08 am Comments DCP- Discharge Planning Updated by [id number]: Bridgette Parrish on 02/09/20 7:[address] LATE ENTRY 02/08/20 @ 1630 I SPOKE WITH PATIENT AND AT LENGTH ABOUT THE STATUS OF [facility] VS [facility]. I ALSO SPOKE TO THEM ABOUT INPATIENT REHAB. THEY WERE BOTH AGREEABLE TO INPATIENT REHAB THEY WOULD LIKE TO GO TO [facility]. I SPOKE WITH JULIÁN 02/09/20 I SPOKE WITH JULIÁN AND SENT REFERRAL TO THEM DCP- Discharge Planning Updated by [id number]: Bridgette Parrish on 02/07/20 12:[address] I CALLED [facility] TO SEE WHAT THEIR BED STATUS IS SHE IS FULL TILL NEXT WEEK AT THE [facility]. [facility] IS STILL THE PATIENT'S FIRST CHOICE CM IS IN CONTACT WITH [facility] MULTIPLE TIMES A DAY CHECKING ON THEIR BED STATUS DCP- Discharge Planning Updated by [id number]: Bridgette Parrish on 02/05/20 1:[address] CM SPOKE WITH PATIENT AND ABOUT PLAN OF CARE. THEY WOULD LIKE TO GO TO [facility], REFERRAL SENT HETAL SIGNED AND PLACED IN CHART. [facility] IS THEIR SECOND CHOICE. IMM SERVED AND EXPLAINED. CM WILL CONTINUE TO FOLLOW AND ASSIST NEEDED DCP- Discharge Planning Updated by [id number]: María Yu on 02/01/20 2:[address] CM RECEIVED A TELEPHONE CALL FROM LUDWIG, THE CHARGE NURSE. THE PATIENT';S WANTED TO SPEAK WITH THE MARINE MAMMAL TRAINER AND I MET HER IN THE ICU WAITING ROOM. THE PATIENT'S HAD COPIES OF THE PATIENT'S LIVING WILL AND HER POWER OF INSTRUCTOR DECORATING TO BE PLACED IN THE CHART. SHE WANTED TO MAKE SURE THAT HER DOES NOT SIGN ANYTHING SHE FEELS HE IS NOT MENTALLY CAPABLE TO MAKE DECISIONS AT THIS TIME. SHE STATES THEY LIVE IN [place] AND WERE VERY ACTIVE MID 69YEAR OLDS PRIOR TO THIS ADMISSION. SHE IS HARD OF HEARING. SHE HAS A CELL PHONE AND A HEARING IMPAIRED TEXT PHONE FOR COMMUNICATION. CM CONFIMRED THE CONTACT PHONE NUMBERS [phone] TEXT PHONE [phone] CELL PHONE. [facility]- [facility] DME- WALKER AND A CPAP. THE CPAP HE OBTAINED A NUMBER OF YEARS AGO. THE PATIENT DOES NOT USE IT OFTEN. DISCUSSED NEEDS AT DISCHARGE. SHE WOULD LIKE TO HAVE HOME HEALTH AT THIS TIME. SHE WOULD LIKE A UPDATE. CM SPOKE W/ THE CHARGE NURSE AND PRIMARY NURSE. PLACED THE LIVING WILL AND POA ON THE FRONT OF THE PATIENT'S CHART. CM CONFIRMED THE 'S CONTACT PHONE NUMBERS W/ THE CHARGE NURSE. ILIANA, THE PRIMARY NURSE. SPOKE W/ THE IN THE WAITING ROOM. THE WOULD ALSO LIKE TO SPEAK WITH THE MD. CM ADVISED THE NURSES HE HAD NOT ROUNDED YET. CM TO FOLLOW TO ASSIST IS APPROPRIATE. DCPIA - Discharge Planning Initial Assessment Updated by [id number]: María Yu on 02/01/20 2:52 pm * Is the patient Alert and Oriented? No * How many steps to enter\exit or inside your home? NONE * [facility] [address] [facility] * Pharmacy [facility] IN [facility] * Preadmission Environment Home with Family * ADLs Independent * Equipment Walker * Other Equipment DENIES ANY ADDITIONAL DME * List name and contact numbers for known caregivers / representatives who currently or will assist patient after discharge: HUSEYIN ANDERSON- - [phone] THE IS HARD OF HEARING SHE HAS A TEXT ONLY PHONE FOR HEARING IMPAIRED [phone] * Verbal permission to speak to the caregivers and representatives has been obtained from the patient. Yes * Community resources currently utilized None * Please name any agencies selected above. N/A * Additional services required to return to the preadmission environment? Yes * Can the patient safely return to the preadmission environment? Yes * Has this patient been hospitalized within the prior 30 days at any hospital? No Coverage Notice Reviewer: [id number] Nila Parrish Notice Issued Date-Time: 02/05/2020 11:00 Notice Type: Patient Choice Letter Notice Delivered To: Patient Relationship to Patient: Spouse Franchise Manager Name: HUSEYIN Delivery Method: HAND - Hand Delivered Nuha Days: Prior Verbal Notification: Recipient Understood Notice: Yes Recipient Signature: Yes Med Rec Note Co-signed by Attending: Coverage Notice Comment: HETAL WITH [facility] AT [facility] AND [facility] Reviewer: [id number] Nila Parrish Notice Issued Date-Time: 02/05/2020 11:00 Notice Type: IM Discharge Notice Notice Delivered To: Patient Relationship to Patient: Spouse Franchise Manager Name: HUSEYIN Delivery Method: HAND - Hand Delivered Nuha Days: Prior Verbal Notification: Recipient Understood Notice: Yes Recipient Signature: Yes Med Rec Note Co-signed by Attending: Coverage Notice Comment: IMM SERVED AND EXPLAINED Last DP export: 02/09/20 7:00 a Patient Name: REGINO ANDERSON Page [phone] at 0808 All edits/amendments must be made on the electronic document DICTATION DATE: 02/09/20 0808 ON CALL PHARMACY TECHNICIAN: NETTA 02/09/20 0808 RPT#: [id number] DC DATE: STATUS: ADM IN [facility] [address] [place] [address] END OF REPORT
[2020-02-09] MEDS ORDERED: PERCOCET 10-321 EAC1 PO (08:22)
[2020-02-09 09:46] VITALS: BP 141/86
--- NOTE | 2020-02-09 10:46 | NUR ---
C/O NAUSEA. GIVEN 4MG ZOFRAN PO FOR SAME. WILL MONITOR.
[2020-02-09 12:15] VITALS: BP 137/70
[2020-02-09] MEDS ORDERED: MIRALAX17 GM PO (12:39)
[2020-02-09] MEDS ORDERED: Vancomycin 1.25 GM/N IV (12:39)
[2020-02-09] MEDS ORDERED: ELIQUIS5 MG PO (12:39)
[2020-02-09] MEDS ORDERED: ZOSYN 3.3753.375 G1 IV (12:39)
--- NOTE | 2020-02-09 13:29 | MORECARE ---
CASE MANAGEMENT DISCHARGE SUMMARY PATIENT: REGINO ANDERSON UNIT: [id number] ADM DATE: 01/27/20 AGE: 74 : 44 SEX: M ROOM/BED: D.2207 AUTHOR: VAUGHN,DOC PHYSICIAN: REFERRING PHYSICIAN: IZAIAH RUCKER DO DATE OF SERVICE: 02/09/20 Discharge Plan Patient Name: REGINO ANDERSON Facility: [facility]:[place] : 1945 Planned Disposition: Home Health Service Anticipated Discharge Date: Discharge Date: Expected LOS: Initial Reviewer: [id number] Initial Review Date: 02/01/2020 Generated: 02/09/20 2:29 pm Comments DCP- Discharge Planning Updated by [id number]: Bridgette Parrish on 02/09/20 12:[address] PATIENT WILL BE DISCHARGED TO,, IMM SERVED AND SIGNED. HETAL SIGNED ALSO CM TO FOLLOW AND ASSIST DCP- Discharge Planning Updated by [id number]: Bridgette Parrish on 02/09/20 7:[address] LATE ENTRY 02/08/20 @ 1630 I SPOKE WITH PATIENT AND AT LENGTH ABOUT THE STATUS OF [facility] VS [facility]. I ALSO SPOKE TO THEM ABOUT INPATIENT REHAB. THEY WERE BOTH AGREEABLE TO INPATIENT REHAB THEY WOULD LIKE TO GO TO [facility]. I SPOKE WITH JULIÁN 02/09/20 I SPOKE WITH JULIÁN AND SENT REFERRAL TO THEM DCP- Discharge Planning Updated by [id number]: Bridgette Parrish on 02/07/20 12:[address] I CALLED [facility] TO SEE WHAT THEIR BED STATUS IS SHE IS FULL TILL NEXT WEEK AT THE [facility]. [facility] IS STILL THE PATIENT'S FIRST CHOICE CM IS IN CONTACT WITH [facility] MULTIPLE TIMES A DAY CHECKING ON THEIR BED STATUS DCP- Discharge Planning Updated by [id number]: Bridgette Parrish on 02/05/20 1:[address] CM SPOKE WITH PATIENT AND ABOUT PLAN OF CARE. THEY WOULD LIKE TO GO TO [facility], REFERRAL SENT HETAL SIGNED AND PLACED IN CHART. [facility] IS THEIR SECOND CHOICE. IMM SERVED AND EXPLAINED. CM WILL CONTINUE TO FOLLOW AND ASSIST NEEDED DCP- Discharge Planning Updated by [id number]: María Yu on 02/01/20 2:[address] CM RECEIVED A TELEPHONE CALL FROM LUDWIG, THE CHARGE NURSE. THE PATIENT';S WANTED TO SPEAK WITH THE LEGAL DIRECTOR AND I MET HER IN THE ICU WAITING ROOM. THE PATIENT'S HAD COPIES OF THE PATIENT'S LIVING WILL AND HER POWER OF AUTOMATED TELLER MANAGER TO BE PLACED IN THE CHART. SHE WANTED TO MAKE SURE THAT HER DOES NOT SIGN ANYTHING SHE FEELS HE IS NOT MENTALLY CAPABLE TO MAKE DECISIONS AT THIS TIME. SHE STATES THEY LIVE IN [place] AND WERE VERY ACTIVE MID 69YEAR OLDS PRIOR TO THIS ADMISSION. SHE IS HARD OF HEARING. SHE HAS A CELL PHONE AND A HEARING IMPAIRED TEXT PHONE FOR COMMUNICATION. CM CONFIMRED THE CONTACT PHONE NUMBERS [phone] TEXT PHONE [phone] CELL PHONE. [facility]- [facility] DME- WALKER AND A CPAP. THE CPAP HE OBTAINED A NUMBER OF YEARS AGO. THE PATIENT DOES NOT USE IT OFTEN. DISCUSSED NEEDS AT DISCHARGE. SHE WOULD LIKE TO HAVE HOME HEALTH AT THIS TIME. SHE WOULD LIKE A UPDATE. CM SPOKE W/ THE CHARGE NURSE AND PRIMARY NURSE. PLACED THE LIVING WILL AND POA ON THE FRONT OF THE PATIENT'S CHART. CM CONFIRMED THE 'S CONTACT PHONE NUMBERS W/ THE CHARGE NURSE. ILIANA, THE PRIMARY NURSE. SPOKE W/ THE IN THE WAITING ROOM. THE WOULD ALSO LIKE TO SPEAK WITH THE MD. CM ADVISED THE NURSES HE HAD NOT ROUNDED YET. CM TO FOLLOW TO ASSIST IS APPROPRIATE. DCPIA - Discharge Planning Initial Assessment Updated by [id number]: María Yu on 02/01/20 2:52 pm * Is the patient Alert and Oriented? No * How many steps to enter\exit or inside your home? NONE * [facility] OFF[facility] * Pharmacy [facility] IN [facility] * Preadmission Environment Home with Family * ADLs Independent * Equipment Walker * Other Equipment DENIES ANY ADDITIONAL DME * List name and contact numbers for known caregivers / representatives who currently or will assist patient after discharge: HUSEYIN ANDERSON- - [phone] THE IS HARD OF HEARING SHE HAS A TEXT ONLY PHONE FOR HEARING IMPAIRED [phone] * Verbal permission to speak to the caregivers and representatives has been obtained from the patient. Yes * Community resources currently utilized None * Please name any agencies selected above. N/A * Additional services required to return to the preadmission environment? Yes * Can the patient safely return to the preadmission environment? Yes * Has this patient been hospitalized within the prior 30 days at any hospital? No Coverage Notice Reviewer: [id number] Parrish Notice Issued Date-Time: 02/05/2020 11:00 Notice Type: Patient Choice Letter Notice Delivered To: Patient Relationship to Patient: Spouse Machinist Job Setter Name: HUSEYIN Delivery Method: HAND - Hand Delivered Nuha Days: Prior Verbal Notification: Recipient Understood Notice: Yes Recipient Signature: Yes Med Rec Note Co-signed by Attending: Coverage Notice Comment: HETAL WITH [facility] AT [facility] AND [facility] Reviewer: [id number] Parrish Notice Issued Date-Time: 02/05/2020 11:00 Notice Type: IM Discharge Notice Notice Delivered To: Patient Relationship to Patient: Spouse Machinist Job Setter Name: HUSEYIN Delivery Method: HAND - Hand Delivered Nuha Days: Prior Verbal Notification: Recipient Understood Notice: Yes Recipient Signature: Yes Med Rec Note Co-signed by Attending: Coverage Notice Comment: IMM SERVED AND EXPLAINED Reviewer: JAKE Parrish Notice Issued Date-Time: 02/09/2020 13:00 Notice Type: IM Discharge Notice Notice Delivered To: Family Member Relationship to Patient: Spouse Machinist Job Setter Name: HUSEYIN Delivery Method: HAND - Hand Delivered Nuha Days: Prior Verbal Notification: Recipient Understood Notice: Yes Recipient Signature: Yes Med Rec Note Co-signed by Attending: Coverage Notice Comment: Reviewer: JAKE Parrish Notice Issued Date-Time: 02/09/2020 13:00 Notice Type: Patient Choice Letter Notice Delivered To: Family Member Relationship to Patient: Spouse Machinist Job Setter Name: HUSEYIN Delivery Method: HAND - Hand Delivered Nuha Days: Prior Verbal Notification: Recipient Understood Notice: Yes Recipient Signature: Yes Med Rec Note Co-signed by Attending: Coverage Notice Comment: Last DP export: 02/09/20 7:08 a Patient Name: REGINO ANDERSON Page [id number] at 1329 All edits/amendments must be made on the electronic document DICTATION DATE: 02/09/20 1329 TAPE WEAVER: NETTA 02/09/20 1329 RPT#: [id number] DC DATE: STATUS: ADM IN [facility] [address] [facility] [place] [address] END OF REPORT
--- NOTE | 2020-02-09 13:59 | NUR ---
OT NOTE: PT NOT FEELING WELL TODAY. REPORTING THAT HE FELT VERY NAUSEATED.. ASSISTED WITH TOILETING WITH MIN ASSIST FOR TRANSFER AND MOD ASSIST WITH HYGIENE..TRANSFERRED BACK TO BED WITH LOB WHEN BACKING UP TO BED. PT STATED THAT HE DID NOT FEEL LIKE HE COULD AMBULATE TODAY HE FELT SO SICK. BACK TO BED WITH MIN ASSIST; SIMPLE GROOMING WITH SETUP. GODWIN WELLS, OTR/L [phone]
--- NOTE | 2020-02-09 15:22 | MORECARE ---
CASE MANAGEMENT DISCHARGE SUMMARY PATIENT: REGINO ANDERSON UNIT: [id number] ADM DATE: 01/27/20 AGE: 74 : 44 SEX: M ROOM/BED: D.2207 AUTHOR: VAUGHN,DOC PHYSICIAN: REFERRING PHYSICIAN: IZAIAH RUCKER DO DATE OF SERVICE: 02/09/20 Discharge Plan Patient Name: REGINO ANDERSON Facility: [facility]:[place] : 1945 Planned Disposition: Home Health Service Anticipated Discharge Date: Discharge Date: Expected LOS: Initial Reviewer: [id number] Initial Review Date: 02/01/2020 Generated: 02/09/20 4:21 pm Comments DCP- Discharge Planning Updated by [id number]: Bridgette Parrish on 02/09/20 2:[address] Patient will be discharged to room 301 & will be transported via [facility] they will be here at 1700 it was set up by [facility] DCP- Discharge Planning Updated by [id number]: Bridgette Parrish on 02/09/20 12:[address] PATIENT WILL BE DISCHARGED TO,, IMM SERVED AND SIGNED. HETAL SIGNED ALSO CM TO FOLLOW AND ASSIST DCP- Discharge Planning Updated by [id number]: Bridgette Parrish on 02/09/20 7:[address] LATE ENTRY 02/08/20 @ 1630 I SPOKE WITH PATIENT AND AT LENGTH ABOUT THE STATUS OF [facility] VS [facility]. I ALSO SPOKE TO THEM ABOUT INPATIENT REHAB. THEY WERE BOTH AGREEABLE TO INPATIENT REHAB THEY WOULD LIKE TO GO TO [facility]. I SPOKE WITH JULIÁN 02/09/20 I SPOKE WITH JULIÁN AND SENT REFERRAL TO THEM DCP- Discharge Planning Updated by [id number]: Bridgette Parrish on 02/07/20 12:[address] I CALLED [facility] TO SEE WHAT THEIR BED STATUS IS SHE IS FULL TILL NEXT WEEK AT THE [facility]. [facility] IS STILL THE PATIENT'S FIRST CHOICE CM IS IN CONTACT WITH [facility] MULTIPLE TIMES A DAY CHECKING ON THEIR BED STATUS DCP- Discharge Planning Updated by [id number]: Bridgette Parrish on 02/05/20 1:[address] CM SPOKE WITH PATIENT AND ABOUT PLAN OF CARE. THEY WOULD LIKE TO GO TO [facility] AT [facility], REFERRAL SENT HETAL SIGNED AND PLACED IN CHART. [facility] IS THEIR SECOND CHOICE. IMM SERVED AND EXPLAINED. CM WILL CONTINUE TO FOLLOW AND ASSIST NEEDED DCP- Discharge Planning Updated by [id number]: María Yu on 02/01/20 2:[address] CM RECEIVED A TELEPHONE CALL FROM LUDWIG, THE CHARGE NURSE. THE PATIENT';S WANTED TO SPEAK WITH THE GLASS PRODUCTS INSPECTOR AND I MET HER IN THE ICU WAITING ROOM. THE PATIENT'S HAD COPIES OF THE PATIENT'S LIVING WILL AND HER POWER OF NURSES' REGISTRY DIRECTOR TO BE PLACED IN THE CHART. SHE WANTED TO MAKE SURE THAT HER DOES NOT SIGN ANYTHING SHE FEELS HE IS NOT MENTALLY CAPABLE TO MAKE DECISIONS AT THIS TIME. SHE STATES THEY LIVE IN [place] AND WERE VERY ACTIVE MID 69YEAR OLDS PRIOR TO THIS ADMISSION. SHE IS HARD OF HEARING. SHE HAS A CELL PHONE AND A HEARING IMPAIRED TEXT PHONE FOR COMMUNICATION. CM CONFIMRED THE CONTACT PHONE NUMBERS [phone] TEXT PHONE [phone] CELL PHONE. PCP- [facility] DME- WALKER AND A CPAP. THE CPAP HE OBTAINED A NUMBER OF YEARS AGO. THE PATIENT DOES NOT USE IT OFTEN. DISCUSSED NEEDS AT DISCHARGE. SHE WOULD LIKE TO HAVE HOME HEALTH AT THIS TIME. SHE WOULD LIKE A UPDATE. CM SPOKE W/ THE CHARGE NURSE AND PRIMARY NURSE. PLACED THE LIVING WILL AND POA ON THE FRONT OF THE PATIENT'S CHART. CM CONFIRMED THE 'S CONTACT PHONE NUMBERS W/ THE CHARGE NURSE. ILIANA, THE PRIMARY NURSE. SPOKE W/ THE IN THE WAITING ROOM. THE WOULD ALSO LIKE TO SPEAK WITH THE MD. CM ADVISED THE NURSES HE HAD NOT ROUNDED YET. CM TO FOLLOW TO ASSIST IS APPROPRIATE. DCPIA - Discharge Planning Initial Assessment Updated by [id number]: María Yu on 02/01/20 2:52 pm * Is the patient Alert and Oriented? No * How many steps to enter\exit or inside your home? NONE * [facility] * [facility]acy [facility] * Preadmission Environment Home with Family * ADLs Independent * Equipment Walker * Other Equipment DENIES ANY ADDITIONAL DME * List name and contact numbers for known caregivers / representatives who currently or will assist patient after discharge: HUSEYIN ANDERSON- - [phone] THE IS HARD OF HEARING SHE HAS A TEXT ONLY PHONE FOR HEARING IMPAIRED [phone] * Verbal permission to speak to the caregivers and representatives has been obtained from the patient. Yes * Community resources currently utilized None * Please name any agencies selected above. N/A * Additional services required to return to the preadmission environment? Yes * Can the patient safely return to the preadmission environment? Yes * Has this patient been hospitalized within the prior 30 days at any hospital? No Coverage Notice Reviewer: JAKE Parrish Notice Issued Date-Time: 02/05/2020 11:00 Notice Type: Patient Choice Letter Notice Delivered To: Patient Relationship to Patient: Spouse Non Clinical Advisor Name: HUSEYIN Delivery Method: HAND - Hand Delivered Nuha Days: Prior Verbal Notification: Recipient Understood Notice: Yes Recipient Signature: Yes Med Rec Note Co-signed by Attending: Coverage Notice Comment: HETAL WITH [facility] AT [facility] AND [facility] Reviewer: JAKE Parrish Notice Issued Date-Time: 02/05/2020 11:00 Notice Type: IM Discharge Notice Notice Delivered To: Patient Relationship to Patient: Spouse Non Clinical Advisor Name: HUSEYIN Delivery Method: HAND - Hand Delivered Nuha Days: Prior Verbal Notification: Recipient Understood Notice: Yes Recipient Signature: Yes Med Rec Note Co-signed by Attending: Coverage Notice Comment: IMM SERVED AND EXPLAINED Reviewer: JAKE Parrish Notice Issued Date-Time: 02/09/2020 13:00 Notice Type: IM Discharge Notice Notice Delivered To: Family Member Relationship to Patient: Spouse Non Clinical Advisor Name: HUSEYIN Delivery Method: HAND - Hand Delivered Nuha Days: Prior Verbal Notification: Recipient Understood Notice: Yes Recipient Signature: Yes Med Rec Note Co-signed by Attending: Coverage Notice Comment: Reviewer: JAKE Parrish Notice Issued Date-Time: 02/09/2020 13:00 Notice Type: Patient Choice Letter Notice Delivered To: Family Member Relationship to Patient: Spouse Non Clinical Advisor Name: HUSEYIN Delivery Method: HAND - Hand Delivered Nuha Days: Prior Verbal Notification: Recipient Understood Notice: Yes Recipient Signature: Yes Med Rec Note Co-signed by Attending: Coverage Notice Comment: Last DP export: 02/09/20 12:29 p Patient Name: REGINO ANDERSON Page [id number] at 1522 All edits/amendments must be made on the electronic document DICTATION DATE: 02/09/20 152 BUYER BROKER: NETTA 02/09/201521 RPT#: [id number] DC DATE: STATUS: ADM IN [facility] [address] [place] [address] END OF REPORT
--- NOTE | 2020-02-09 17:59 | NUR ---
IV S/L TO LEFT FOREARM. REPORT CALLED TO KARYN ALBERTO AT [facility]. VERIFIED THAT FACILITY HAD A WOUND WAC THERE. WOUND VAC CLAMPED AND DISCONNECTED PRIOR TO DISCHAGE TO E. FAMILY APPRECIATIVE OF CARE RECEIVED.REPORT GIVEN TO AMBULANCE SERVICE PRIOR TO DISCHARGE. STABLE AT THIS TIME WITH PEDAL PULSES NOTED.
--- NOTE | 2020-02-09 19:52 | NUR ---
OT NOTE: PT COMPLETED SUPINE TO SIT WITH CGA. PT COMPLETED EOB SITTING BALANCE WITH SPV. PT COMPLETED FACE HYGIENE WITH SETUP. PT STATED HIS APPETITE IS DECREASED. ALTHOUGHT, HE SAID BREAKFAST WAS GOOD. PT STATED HE HAS DIARRHEA. NURSING AWARE. 4-064 BR[address] BERGMAN COTA
--- NOTE | 2020-02-10 18:11 | MORECARE ---
CASE MANAGEMENT DISCHARGE SUMMARY PATIENT: REGINO ANDERSON UNIT: [id number] ADM DATE: 01/27/20 AGE: 74 : 43 SEX: M ROOM/BED: D.2207 AUTHOR: VAUGHN,DOC PHYSICIAN: REFERRING PHYSICIAN: IZAIAH RUCKER DO DATE OF SERVICE: 02/10/20 Discharge Plan Patient Name: REGINO ANDERSON Facility: [facility]:[place] : 1945 Planned Disposition: Home Health Service Anticipated Discharge Date: Discharge Date: 02/09/2020 Expected LOS: Initial Reviewer: [id number] Initial Review Date: 02/01/2020 Generated: 02/10/20 7:10 pm Comments DCP- Discharge Planning Updated by [id number]: Bridgette Parrish on 02/09/20 2:[address] Patient will be discharged to room 301 & will be transported via [facility] they will be here at 1700 it was set up by [facility] DCP- Discharge Planning Updated by [email or web address]: Bridgette Parrish on 02/09/20 12:[address] PATIENT WILL BE DISCHARGED TO,, IMM SERVED AND SIGNED. [facility] SIGNED ALSO CM TO FOLLOW AND ASSIST DCP- Discharge Planning Updated by [email or web address]: Bridgette Parrish on 02/09/20 7:[address] LATE ENTRY 02/08/20 @ 1630 I SPOKE WITH PATIENT AND AT LENGTH ABOUT THE STATUS OF [facility] VS [facility]. I ALSO SPOKE TO THEM ABOUT INPATIENT REHAB. THEY WERE BOTH AGREEABLE TO INPATIENT REHAB THEY WOULD LIKE TO GO TO [facility]. I SPOKE WITH JULIÁN 02/09/20 I SPOKE WITH JULIÁN AND SENT REFERRAL TO THEM DCP- Discharge Planning Updated by [id number]: Bridgette Parrish on 02/07/20 12:[address] I CALLED [facility] TO SEE WHAT THEIR BED STATUS IS SHE IS FULL TILL NEXT WEEK AT [facility]. [facility] IS STILL THE PATIENT'S FIRST CHOICE CM IS IN CONTACT WITH [facility] MULTIPLE TIMES A DAY CHECKING ON THEIR BED STATUS DCP- Discharge Planning Updated by [email or web address]: Bridgette Parrish on 02/05/20 1:[address] CM SPOKE WITH PATIENT AND ABOUT PLAN OF CARE. THEY WOULD LIKE TO GO TO [facility], REFERRAL SENT [facility] SIGNED AND PLACED IN CHART. [facility] IS THEIR SECOND CHOICE. IMM SERVED AND EXPLAINED. CM WILL CONTINUE TO FOLLOW AND ASSIST NEEDED DCP- Discharge Planning Updated by [id number]: María Yu on 02/01/20 2:[address] CM RECEIVED A TELEPHONE CALL FROM LUDWIG, THE CHARGE NURSE. THE PATIENT';S WANTED TO SPEAK WITH THE REFINERY OPERATOR HELPER AND I MET HER IN THE ICU WAITING ROOM. THE PATIENT'S HAD COPIES OF THE PATIENT'S LIVING WILL AND HER POWER OF SURVEILLANCE OPERATOR TO BE PLACED IN THE CHART. SHE WANTED TO MAKE SURE THAT HER DOES NOT SIGN ANYTHING SHE FEELS HE IS NOT MENTALLY CAPABLE TO MAKE DECISIONS AT THIS TIME. SHE STATES THEY LIVE IN [place] AND WERE VERY ACTIVE MID 69YEAR OLDS PRIOR TO THIS ADMISSION. SHE IS HARD OF HEARING. SHE HAS A CELL PHONE AND A HEARING IMPAIRED TEXT PHONE FOR COMMUNICATION. CM CONFIMRED THE CONTACT PHONE NUMBERS [phone] TEXT PHONE [phone] CELL PHONE. PCP- [facility] DME- WALKER AND A CPAP. THE CPAP HE OBTAINED A NUMBER OF YEARS AGO. THE PATIENT DOES NOT USE IT OFTEN. DISCUSSED NEEDS AT DISCHARGE. SHE WOULD LIKE TO HAVE HOME HEALTH AT THIS TIME. SHE WOULD LIKE A UPDATE. CM SPOKE W/ THE CHARGE NURSE AND PRIMARY NURSE. PLACED THE LIVING WILL AND POA ON THE FRONT OF THE PATIENT'S CHART. CM CONFIRMED THE 'S CONTACT PHONE NUMBERS W/ THE CHARGE NURSE. ILIANA, THE PRIMARY NURSE. SPOKE W/ THE IN THE WAITING ROOM. THE WOULD ALSO LIKE TO SPEAK WITH THE MD. CM ADVISED THE NURSES HE HAD NOT ROUNDED YET. CM TO FOLLOW TO ASSIST IS APPROPRIATE. DCPIA - Discharge Planning Initial Assessment Updated by [id number]: María Yu on 02/01/20 2:52 pm * Is the patient Alert and Oriented? No * How many steps to enter\exit or inside your home? NONE * [facility] [address] [facility] * Pharmacy [facility] * Preadmission Environment Home with Family * ADLs Independent * Equipment Walker * Other Equipment DENIES ANY ADDITIONAL DME * List name and contact numbers for known caregivers / representatives who currently or will assist patient after discharge: HUSEYIN ANDERSON- - [phone] THE IS HARD OF HEARING SHE HAS A TEXT ONLY PHONE FOR HEARING IMPAIRED [phone] * Verbal permission to speak to the caregivers and representatives has been obtained from the patient. Yes * Community resources currently utilized None * Please name any agencies selected above. N/A * Additional services required to return to the preadmission environment? Yes * Can the patient safely return to the preadmission environment? Yes * Has this patient been hospitalized within the prior 30 days at any hospital? No Coverage Notice Reviewer: JAKE Parrish Notice Issued Date-Time: 02/05/2020 11:00 Notice Type: Patient Choice Letter Notice Delivered To: Patient Relationship to Patient: Spouse Rating Specialist Name: HUSEYIN Delivery Method: HAND - Hand Delivered Nuha Days: Prior Verbal Notification: Recipient Understood Notice: Yes Recipient Signature: Yes Med Rec Note Co-signed by Attending: Coverage Notice Comment: [facility] WITH [facility] AT [facility] Reviewer: JAKE Parrish Notice Issued Date-Time: 02/05/2020 11:00 Notice Type: IM Discharge Notice Notice Delivered To: Patient Relationship to Patient: Spouse Rating Specialist Name: HUSEYIN Delivery Method: HAND - Hand Delivered Nuha Days: Prior Verbal Notification: Recipient Understood Notice: Yes Recipient Signature: Yes Med Rec Note Co-signed by Attending: Coverage Notice Comment: IMM SERVED AND EXPLAINED Reviewer: JAKE Parrish Notice Issued Date-Time: 02/09/2020 13:00 Notice Type: IM Discharge Notice Notice Delivered To: Family Member Relationship to Patient: Spouse Rating Specialist Name: HUSEYIN Delivery Method: HAND - Hand Delivered Nuha Days: Prior Verbal Notification: Recipient Understood Notice: Yes Recipient Signature: Yes Med Rec Note Co-signed by Attending: Coverage Notice Comment: Reviewer: JAKE Parrish Notice Issued Date-Time: 02/09/2020 13:00 Notice Type: Patient Choice Letter Notice Delivered To: Family Member Relationship to Patient: Spouse Rating Specialist Name: HUSEYIN Delivery Method: HAND - Hand Delivered Nuha Days: Prior Verbal Notification: Recipient Understood Notice: Yes Recipient Signature: Yes Med Rec Note Co-signed by Attending: Coverage Notice Comment: Last DP export: 02/09/20 2:22 p Patient Name: REGINO ANDERSON Page [id number] at 1811 All edits/amendments must be made on the electronic document DICTATION DATE: 02/10/201809 CAR UNLOADER HELPER: NETTA 02/10/201809 RPT#: [id number] DC DATE:02/09/20 STATUS: DIS IN [facility] [address] [place] [address] END OF REPORT
== END 2020-02-09 18:00 | DRG 982 ==
LOC: D.ER 12:19 → D.MS 13:38 → D.ICU 13:38 → D.ER 15:10 → D.ICU 01-29 14:39 → D.MS 02-02 19:44
PROVIDERS: Emergency Medicine; Family Medicine; Internal Medicine Cardiovascular Disease; Orthopaedic Surgery; ADMIT Family Medicine; ATTEND Family Medicine
PROC: 0KNS0ZZ Release Right Lower Leg Muscle, Open Approach (ICD-10-PCS; 2020-01-28)
PROC: 0KNS0ZZ Release Right Lower Leg Muscle, Open Approach (ICD-10-PCS; 2020-01-28)
PROC: 0KNS0ZZ Release Right Lower Leg Muscle, Open Approach (ICD-10-PCS; 2020-01-28)
PROC: 0KNS0ZZ Release Right Lower Leg Muscle, Open Approach (ICD-10-PCS; 2020-01-28)
PROC: 0JCN0ZZ Extirpation of Matter from Right Lower Leg Subcutaneous Tissue and Fascia, Open Approach (ICD-10-PCS; 2020-01-29)
PROC: 2W1LX6Z Compression of Right Lower Extremity using Pressure Dressing (ICD-10-PCS; 2020-01-29)
PROC: B40 Imaging, Lower Arteries, Plain Radiography (ICD-10-PCS; principal; 2020-01-30 08:00)
DX: T79.A21A Traumatic compartment syndrome of right lower extremity, initial encounter (principal); I82.4Z1 Acute embolism and thrombosis of unspecified deep veins of right distal lower extremity; D62 Acute posthemorrhagic anemia; I48.20 Chronic atrial fibrillation, unspecified; N17.9 Acute kidney failure, unspecified; T63.001A Toxic effect of unspecified snake venom, accidental (unintentional), initial encounter; I10 Essential (primary) hypertension; Z79.01 Long term (current) use of anticoagulants; I73.9 Peripheral vascular disease, unspecified

== ENCOUNTER 2020-03-11 07:21 | Day surgery (SDC) | payer MEDICARE ==
[~2020-03-11] VITALS: Ht 190.5 cm; Wt 88.5 kg
[~2020-03-11 07:21] MED LIST changes: +BACTRIM DS TAB1 EAC1 PO; +ELIQUIS5 MG PO; +LISINOPRIL10 MG PO; +MIRALAX17 GM PO; +PERCOCET 10-321 EAC1 PO; +Vancomycin 1.25 GM/N IV; +ZOSYN 3.3753.375 G1 IV
[2020-03-11 07:59] LABS: HEMOGLOBIN 13.4 g/dL (13.5-17.5); MCH 30.7 pg (26.0-34.0); MCHC 32.7 g/dL (31.0-37.0); MEAN PLATELET VOLUME 10.3 fL (7.4-10.4); RBC 4.36 10x6/uL (4.20-6.10); RDW 13.6 % (11.5-14.5)
[2020-03-11] MEDS ORDERED: CARAFATE1 G PO (08:26)
[2020-03-11 08:35] VITALS: BP 95/63; Ht 190.5 cm; Wt 88.5 kg
[2020-03-11] MEDS ORDERED: HYDROCODON-ACE1 EA10 PO (11:27)
--- NOTE | 2020-03-11 11:32 | NUR ---
NO KNEE IMMOBILIZER PLACED ON PT AFTER SURGERY DUE TO GRAFT PER PHYSICIANS ORDER.
--- NOTE | 2020-03-12 16:13 | OP ---
PATIENT NAME: ALEC ANDERSON MEDICAL RECORD: [id number] :43 LOCATION:D.OPS ADMISSION DATE: SURGEON: OZ PRAKASH MD DATE OF OPERATION: 03/11/2020 PREOPERATIVE DIAGNOSIS: Prior fasciotomies to the right lower extremity, status post venomous snake bite. POSTOPERATIVE DIAGNOSIS: Prior fasciotomies to the right lower extremity, status post venomous snake bite. PROCEDURE: I&D with synthetic skin grafting (Restrata). SURGEON: Oz Prakash MD ANESTHESIA: Regional with sedation. INTRAOPERATIVE COMPLICATIONS: None. SUMMARY OF PATHOLOGIC FINDINGS: The patient's graft sites were beautifully prepared for taking the synthetic graft which was prepared with PRP prior to placing it. He had excellent granulation tissue about the entire medial and lateral fasciotomy site. INDICATIONS: Mr. 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 He has had wound VACs in place for quite some time now and he was deemed prepared for a synthetic grafting at the last clinic appointment. OPERATIVE SUMMARY IN DETAIL: After obtaining the appropriate preoperative orthopedic surgery consent as well as anesthetic consultation, evaluation and clearance, the patient was brought to the operating room and placed on the operating table in a supine position. After adequate general TIVA had been administered and the patient had preoperatively received a right lower extremity block, the patient's leg was prepped and draped in a routine sterile fashion. Small slight bulb irrigation was utilized to gently remove any tissue that appeared to be nonviable, which was very minimal after the prep itself. At this point, the patient's PRP was ready. It was placed on the Restrata graft that had been meshed at 1:1.5. It was allowed to soak in the PRP for approximately 15 minutes. The graft was then stapled, both the medial and lateral large wounds. The residual of the PRP was then used to continuously cover the graft as well as inject slightly in about the area of the wound. Having completed this, the Restrata graft was covered with a nonstick fail from [employer] and then sterile dressings were applied. At this point, the patient was then taken back to outpatient in stable condition. TRANSINT:[id number] Voice Confirmation ID: [id number] DOCUMENT ID: [id number] OPERATIVE REPORT [id number] ALEC ANDERSON MD, OZ DUPONT at 1613 CC: [id number] DICTATION DATE: 03/11/20 1125 SALES REPRESENTATIVE GRAPHIC ART: 03/11/20 2313 [facility] 03/11/20 [place] [id number] [place] [id number]
== END 2020-03-11 12:40 | disposition home or self-care (01) ==
LOC: D.OPS 07:21 → D.PAN 12:30 → D.OPS 12:30
PROVIDERS: Anesthesiology; ATTEND Orthopaedic Surgery
DX: T63.001D Toxic effect of unspecified snake venom, accidental (unintentional), subsequent encounter (principal); S81.801D Unspecified open wound, right lower leg, subsequent encounter; E78.5 Hyperlipidemia, unspecified; D64.9 Anemia, unspecified; I10 Essential (primary) hypertension; I48.91 Unspecified atrial fibrillation; L03.119 Cellulitis of unspecified part of limb
CPT/HCPCS: 15002; G0460